=== PATIENT | male | born 1950 | race Caucasian/White ===

== ENCOUNTER 2016-05-04 11:35 | Emergency (ER) | payer MEDICARE ==
[2016-05-04] MEDS ORDERED: Zofran 4 MG/2 ML VIAL IV ONE (11:57)
[2016-05-04] MEDS ORDERED: Sodium Chloride 0.9% 1000 ML 1,000 ML IV SCH (12:00)
[2016-05-04] MEDS ORDERED: Sodium Chloride 0.9% 1000 ML 1,000 ML ONE (12:01)
[2016-05-04] MEDS ORDERED: Zofran 4 MG/2 ML VIAL ONE (12:01)
[2016-05-04 12:08] LABS: Eosinophil % 3.5 % (0.00-5.0); Granulocytes % 46.6 % (36.0-66.0); Lymphocytes % 42.1 % (24.0-44.0); Mean Cell Volume 94.6 fl (78-100); Mean Platelet Volume 9.8 fl (6-9.5); Monocytes % 6.8 % (0.0-12.0); Platelet Count 205 K/mm3 (150-450); Red Blood Count 4.61 M/mm3 (4.1-5.6); Red Cell Distribution Width 14.9 % (11.5-14.0); White Blood Count 6.1 K/mm3 (4.0-10.5)
--- NOTE | 2016-05-04 12:10 | ERPHSYRPT ---
- History of Present Illness Time Seen by Provider: 05/04/16 11:44 Historian: patient Patient Subjective Stated Complaint: PT REPORTS BEING CONTIPATED FOR 5-6 DAYS- STATES THAT THIS AM HE BEGAN PASSING A SMALL AMOUNT OF STOOL WITH BRIGHT RED BLOOD IN IT-REPORTS ABD PAIN-DENIES N/V Triage Nursing Assessment: PT PINK WARM ET DRY-BOWEL SOUNDS HYPOACTIVE-ABD TENDER TO PALP Physician History: CC: abd pain Hx: 65 y/o patient of Dr Villalobos. He has chronic pain syndrome. He has opioid induced constipation on medication. No BM for 5 days. Worsened lower abd pain. Nausea. Passing blood this AM. Low grade fever. No vomiting. Normal urination. Timing/Duration: day(s) (few) Severity of Pain-Max: moderate Severity of Pain-Current: moderate Allergies/Adverse Reactions: latex Allergy (Severe, Verified 05/04/16 11:46) Swelling pt states urinary catheter used w/ severe swelling of penis nitroglycerin [From Nitrolingual] Allergy (Severe, Verified 05/04/16 11:46) drops blood pressure immediately iodine Allergy (Verified 05/04/16 11:46) muscle relaxer Allergy (Uncoded 05/04/16 11:46) Home Medications: Fluoxetine HCl 20 mg [Prozac 20 MG] 20 mg PO DAILY 08/02/11 [History] Oxycodone HCl [Oxycontin] 60 mg PO TIDPRN 08/02/11 [History] Pantoprazole Sodium [Protonix] 40 mg PO BID 04/19/15 [History] Alprazolam 1 mg [Xanax 1 mg] 1 mg PO BID 05/04/16 [History] Lansoprazole [Prevacid 24Hr] 15 mg PO DAILY 05/04/16 [History] Hx Tetanus, Diphtheria Vaccination/Date Given: No Hx Influenza Vaccination/Date Given: No Hx Pneumococcal Vaccination/Date Given: No Immunizations Up to Date: Yes - Review of Systems Constitutional: Fever (low grade), Malaise, Weakness Eyes: No Symptoms Ears, Nose, & Throat: No Symptoms Respiratory: No Symptoms Cardiac: No Chest Pain Abdominal/Gastrointestinal: Abdominal Pain, Nausea, Constipation, Hematochezia, No Vomiting Genitourinary Symptoms: No Dysuria Musculoskeletal: Neck Pain (chronic) Skin: No Rash Neurological: Headache (chronic) All Other Systems: Reviewed and Negative - Past Medical History Pertinent Past Medical History: Yes Neurological History: Migraines ENT History: No Pertinent History Cardiac History: Arrhythmia, High Cholesterol, Myocardial Infarction ([place]) Respiratory History: Sleep Apnea Endocrine Medical History: No Pertinent History Musculoskeletal History: No Pertinent History GI Medical History: GERD, Gallbladder Disease, Ulcer History: No Pertinent History Psycho-Social History: Anxiety, Depression, Panic Disorder Male Reproductive Disorders: No Pertinent History - Past Surgical History Past Surgical History: Yes Neuro Surgical History: No Pertinent History Cardiac: Cardiac Catheterization, Cardiac Stent Respiratory: No Pertinent History Gastrointestinal: Cholecystectomy Genitourinary: No Pertinent History Musculoskeletal: Other Male Surgical History: No Pertinent History Other Surgical History: disk removed in neck., L ear tubes placed. - Social History Smoking Status: Current every day smoker How long have you smoked: 51 Exposure to second hand smoke: No Drug Use: none Patient Lives Alone: Yes - Nursing Vital Signs Nursing Vital Signs: Initial Vital Signs Temperature 97.8 F Temperature Source Oral Pulse Rate 74 Respiratory Rate 18 Blood Pressure [] 117/73 Pain Intensity 8 - Physical Exam General Appearance: alert Eye Exam: PERRL/EOMI Ears, Nose, Throat Exam: normal ENT inspection, moist mucous membranes Neck Exam: normal inspection, non-tender, supple Respiratory Exam: normal breath sounds, lungs clear Cardiovascular Exam: regular rate/rhythm Gastrointestinal/Abdomen Exam: soft, tenderness (lower), guarding (left lower ) Male Genitalia Exam: normal genitalia, No hernia Rectal Exam: normal rectal tone, blood (from 12:00 fissure), other (large stool burden, brown, moderately firm) Extremity Exam: normal inspection, normal range of motion Neurologic Exam: alert, oriented x 3, cooperative, sensation nml, No motor deficits Skin Exam: warm, dry, No rash SpO2 Interpretation: normal SpO2: 98 Oxygen Delivery: Room Air - Course Nursing assessment & vital signs reviewed: Yes - CT Exams abd/pelvis CT Interpretation: Tele-radiologist Report (negative, fecal stasis, renal cyst) Ordered Tests: Active Orders 24 hr Category Date Time Status IV Insertion STAT Care 05/04/16 11:45 Active NPO (ED) STAT Care 05/04/16 11:45 Active Pulse Oximetry (ED) STAT Care 05/04/16 11:45 Active ABDOMEN AND PELVIS W CONTRAST [CT] Stat Exams 05/04/16 11:55 Taken CBC W DIFF Stat Lab 05/04/16 12:00 Completed CMP Stat Lab 05/04/16 12:00 Completed Lactic Acid Urgent Lab 05/04/16 12:00 Completed Occult Blood,Stool Other Stat Lab 05/04/16 12:15 Completed PROTIME WITH INR Stat Lab 05/04/16 12:00 Completed PTT Stat Lab 05/04/16 12:00 Completed Medication Summary Generic Name Dose Route Start Last Admin Trade Name Freq PRN Reason Stop Dose Admin Sodium Chloride 1,000 mls @ 100 mls/hr 05/04/16 12:00 05/04/16 12:05 Sodium Chloride 0.9% 1000 Ml IV 06/03/16 11:59 100 mls/hr .Q10H SENG Administration Discontinued Medications Generic Name Dose Route Start Last Admin Trade Name Freq PRN Reason Stop Dose Admin Sodium Chloride Confirm 05/04/16 12:01 Sodium Chloride 0.9% 1000 Ml Administered 05/04/16 12:02 Dose 1,000 mls @ ud .ROUTE .STK-MED ONE Ondansetron HCl 4 mg 05/04/16 11:57 05/04/16 12:05 Zofran 4 Mg/2 Ml Vial IV 05/04/16 11:58 4 mg STAT ONE Administration Ondansetron HCl Confirm 05/04/16 12:01 Zofran 4 Mg/2 Ml Vial Administered 05/04/16 12:02 Dose 4 mg .ROUTE .STK-MED ONE Lab/Rad Data: Laboratory Result Diagrams 05/04/16 12:00 05/04/16 12:00 Laboratory Results 05/04/16 05/04/16 05/04/16 Range/Units 12:15 12:00 12:00 WBC (4.0-10.5) K/mm3 RBC (4.1-5.6) M/mm3 Hgb (12.5-18.0) gm/dl Hct (42-50) % MCV (78-100) fl MCH (26-32) pg MCHC (32-36) g/dl RDW (11.5-14.0) % Plt Count (150-450) K/mm3 MPV (6-9.5) fl Gran % (36.0-66.0) % Lymphocytes % (24.0-44.0) % Monocytes % (0.0-12.0) % Eosinophils % (0.00-5.0) % Basophils % (0.0-0.4) % Basophils # (0-0.4) INR 1.00 (0.8-3.0) PTT 30.6 (24.1-36.1) SECONDS Sodium (136-145) mEq/L Potassium (3.5-5.1) mEq/L Chloride (98-107) mEq/L Carbon Dioxide (21-32) mEq/L Anion Gap (5-15) MEQ/L BUN (9-20) mg/dL Creatinine (0.55-1.30) mg/dl Estimated GFR ML/MIN Glucose (70-110) MG/DL Lactic Acid 1.6 (0.4-2.0) Calcium (8.5-10.1) mg/dL Total Bilirubin (0.2-1.0) mg/dL AST (15-37) U/L ALT (12-78) U/L Alkaline Phosphatase (46-116) U/L Serum Total Protein (6.4-8.2) gm/dL Albumin (3.4-5.0) g/dL Stool Occult Blood NEGATIVE (Negative) 05/04/16 05/04/16 Range/Units 12:00 12:00 WBC 6.1 (4.0-10.5) K/mm3 RBC 4.61 (4.1-5.6) M/mm3 Hgb 14.3 (12.5-18.0) gm/dl Hct 43.6 (42-50) % MCV 94.6 (78-100) fl MCH 31.0 (26-32) pg MCHC 32.8 (32-36) g/dl RDW 14.9 H (11.5-14.0) % Plt Count 205 (150-450) K/mm3 MPV 9.8 H (6-9.5) fl Gran % 46.6 (36.0-66.0) % Lymphocytes % 42.1 (24.0-44.0) % Monocytes % 6.8 (0.0-12.0) % Eosinophils % 3.5 (0.00-5.0) % Basophils % 1.0 (0.0-0.4) % Basophils # 0.06 (0-0.4) INR (0.8-3.0) PTT (24.1-36.1) SECONDS Sodium 139 (136-145) mEq/L Potassium 4.1 (3.5-5.1) mEq/L Chloride 105 (98-107) mEq/L Carbon Dioxide 26.4 (21-32) mEq/L Anion Gap 11.6 (5-15) MEQ/L BUN 11 (9-20) mg/dL Creatinine 1.17 (0.55-1.30) mg/dl Estimated GFR > 60 ML/MIN Glucose 131 H (70-110) MG/DL Lactic Acid (0.4-2.0) Calcium 8.4 L (8.5-10.1) mg/dL Total Bilirubin 0.3 (0.2-1.0) mg/dL AST 25 (15-37) U/L ALT 26 (12-78) U/L Alkaline Phosphatase 161 H (46-116) U/L Serum Total Protein 7.2 (6.4-8.2) gm/dL Albumin 3.7 (3.4-5.0) g/dL Stool Occult Blood (Negative) - Progress Progress Note: 05/04/16 12:[address] to rule out diverticulitis or perforation. 05/04/16 13:[address] reassuring. He is on miralax and will take twice a day and add one dose mag citrate today. Appt made for tomorrow for recheck. Bleeding likely from fissure but may need colonoscopy and repeat H/H at some point. Counseled pt/family regarding: lab results, diagnosis, need for follow-up, rad results - Departure Time of Disposition: 13:41 Departure Disposition: Home Clinical Impression: Rectal bleeding, Anal fissure, Constipation, Chronic pain syndrome Condition: Fair Critical Care Time: No Referrals: PAOLA VILLALOBOS [Primary Care Provider] - Instructions: Abdominal Pain-Adult, Constipation Additional Instructions: See Dr Paola Villalobos tomorrow at 10:30AM. Take one bottle mag citrate today. Take miralax twice a day. Return for fever, vomiting, worsened pain, concerns.
[2016-05-04 12:22] LABS: PROTIME 11.2 SECONDS (8.83-12.87)
[2016-05-04 12:25] LABS: PTT 30.6 SECONDS (24.1-36.1)
[2016-05-04 12:31] LABS: ALBUMIN 3.7 g/dL (3.4-5.0); ALKALINE PHOSPHATASE 161 U/L (46-116); ANION GAP 11.6 MEQ/L (5-15); BILIRUBIN,TOTAL 0.3 mg/dL (0.2-1.0); BLOOD UREA NITROGEN 11 mg/dL (9-20); CHLORIDE 105 mEq/L (98-107); Carbon Dioxide 26.4 mEq/L (21-32); Glucose 131 MG/DL (70-110); Potassium 4.1 mEq/L (3.5-5.1); SGOT/AST 25 U/L (15-37); SGPT/ALT 26 U/L (12-78); SODIUM 139 mEq/L (136-145); Total Protein 7.2 gm/dL (6.4-8.2)
--- NOTE | 2016-05-04 13:40 | XRAY ---
Indication: Lower abdominal pain and constipation. Multiple contiguous axial images obtained through the abdomen and pelvis using 80 cc Isovue 370 contrast only. Comparison: Noncontrast exam November 06, 2012. Lung bases again demonstrates minimal bibasilar dependent atelectasis. Heart is not enlarged. Noncontrasted stomach and bowel loops nonobstructed. There is now moderate scattered colonic fecal debris throughout. Minimal sigmoid diverticulosis. Normal appendix. Free fluid/air. Previous exophytic right renal cyst slightly larger today measuring 3 cm in greatest axial dimension. Stable calcified splenic granulomas and cholecystectomy clips. Remaining liver, pancreas, spleen, adrenal glands, kidneys, ureters, and bladder appear unremarkable. There remains mild aortoiliac calcifications. No AAA or pathologic retroperitoneal lymphadenopathy. Osseous structures intact again with mild degenerative changes throughout the lower spine and mild levorotoscoliosis. Again multiple bilateral gluteal calcified injection granulomas. Impression: 1. Fecal stasis without obstruction. Sigmoid diverticulosis. 2. No acute intra-abdominal/pelvic abnormalities. 3. Interval enlarging benign-appearing right renal cyst. CT DI 23.57
[2016-05-04] MEDS ORDERED: CITROMA 296 ML PO ONE (13:42)
[2016-05-04] MEDS ORDERED: CITROMA 296 ML ONE (13:46)
[2016-05-04 13:55] VITALS: BP 118/65; PULSE 72; O2SAT 96
== END 2016-05-04 13:54 | disposition home or self-care (01) ==
LOC: ED 11:35
DX: K62.5 Hemorrhage of anus and rectum (principal); K60.2 Anal fissure, unspecified; K59.00 Constipation, unspecified; G89.4 Chronic pain syndrome; Z79.899 Other long term (current) drug therapy; R50.9 Fever, unspecified; R53.1 Weakness; R53.81 Other malaise; R10.9 Unspecified abdominal pain; I25.2 Old myocardial infarction
CPT/HCPCS: 36000; 36415; 74177; 80053; 82272; 83605; 85025; 85610; 85730; 96374; 99284; J2405; A9270-GY

== ENCOUNTER 2016-08-13 17:52 | Inpatient (IN) | payer MEDICARE ==
[2016-08-13] MEDS ORDERED: Zithromax 500 MG/ 250 ML NaCl Premix 500 MG/250 ML IVPB IV STA (17:58)
[2016-08-13] MEDS ORDERED: Sodium Chloride 0.9% 1000 ML 1,000 ML IV STA (17:58)
[2016-08-13] MEDS ORDERED: Zofran 4 MG/2 ML VIAL IV ONE (17:58)
[2016-08-13] MEDS ORDERED: FEVERALL 650 MG PR ONE (17:58)
[2016-08-13] MEDS ORDERED: ROCEPHIN 1 Gm-D5w 50 ml Bag** 1 G/50 ML IVPB IV STA (17:58)
[2016-08-13 18:10] LABS: Lactic Acid 2.6 (0.4-2.0)
[2016-08-13 18:11] LABS: Mean Cell Volume 93.1 fl (78-100); Mean Corpuscular Hemoglobin 30.8 pg (26-32); Mean Platelet Volume 9.7 fl (6-9.5); Platelet Count 204 K/mm3 (150-450); Red Blood Count 5.09 M/mm3 (4.1-5.6); Red Cell Distribution Width 14.6 % (11.5-14.0); White Blood Count 22.8 K/mm3 (4.0-10.5)
[2016-08-13] MEDS ORDERED: FEVERALL 650 MG ONE (18:18)
[2016-08-13] MEDS ORDERED: Sodium Chloride 0.9% 1000 ML 1,000 ML ONE (18:18)
[2016-08-13] MEDS ORDERED: Zofran 4 MG/2 ML VIAL ONE (18:18)
[2016-08-13] MEDS ORDERED: FEVERALL 325 MG ONE (18:18)
[2016-08-13] MEDS ORDERED: ROCEPHIN 1 Gm-D5w 50 ml Bag** 1 G/50 ML IVPB IV ONE (18:19)
--- NOTE | 2016-08-13 18:20 | ERPHSYRPT ---
- History of Present Illness Time Seen by Provider: 08/13/16 17:57 Source: patient, EMS Patient Subjective Stated Complaint: PT STATES HE STARTED FEELING ILL YESTERDAY , STATES HE HAS VOMITED 3 TIMES YESTERDAY AND TODAY. Triage Nursing Assessment: PT IS AOX3, ARRIVED PER EMS, RESPS ARE EASY AND NON LABORED, PRODUCTIVE COUGH IS NOTED WITH THICK WHITE SPUTUM PRESENT, SKIN IS HOT TO TOUCH, PULSES ARE STRONG AND EQUAL, ABD IS SOFT AND NONTENDER, BOWEL SOUNDS ARE PRESENT AND NORMOACTIVEX4. Physician History: CC: general weakness Hx: 65 y/o patient of Dr Brandyn Villalobos. He feels general weakness today. [place] hot and had cold chills. He vomited three times today. Some cough and white phlegm. Mylagias and he has a hx of chronic pain syndrome. He has prior cardiac stent. No chest pain. No diarrhea. No abd pain. He had nausea. EMS noted he felt hot to touch. He had a sore on the right forearm. It is better. but red and inflammed and swollen. Timing/Duration: today Severity: moderate Allergies/Adverse Reactions: latex Allergy (Severe, Verified 08/13/16 18:09) Swelling pt states urinary catheter used w/ severe swelling of penis nitroglycerin [From Nitrolingual] Allergy (Severe, Verified 08/13/16 18:09) drops blood pressure immediately iodine Allergy (Verified 08/13/16 18:09) muscle relaxer Allergy (Uncoded 08/13/16 18:09) Home Medications: Alprazolam 1 mg [Xanax 1 mg] 1 mg PO TID PRN 08/13/16 [History] Amitriptyline HCl 25 mg [Elavil 25 mg] 75 mg PO HS 08/13/16 [History] Aspirin 81 gm Chew [Baby Aspirin 81 mg Chew] 81 mg PO DAILY 08/13/16 [ History] Clonidine HCl 0.1 mg [Catapres 0.1 MG] 0.1 mg PO BID PRN 08/13/16 [History ] Fluoxetine HCl 10 mg [Prozac 10 mg] 40 mg PO QAM 08/13/16 [History] Gabapentin 300 mg PO TID 08/13/16 [History] Hydrocodone Bit/Acetaminophen [Hydrocodon-Acetaminoph 7.5-325] 1 each PO Q4- 6HPRN PRN 08/13/16 [History] Lamotrigine 25 mg PO DAILY 08/13/16 [History] Lansoprazole 30 mg PO DAILY 08/13/16 [History] Naloxegol Oxalate [Movantik] 12.5 mg PO DAILY 08/13/16 [History] Oxycodone HCl Cr 20 mg [Oxycontin 20 MG ER] 20 mg PO Q12H 08/13/16 [ History] Rosuvastatin Calcium [Crestor] 40 mg PO DAILY 08/13/16 [History] Hx Tetanus, Diphtheria Vaccination/Date Given: No Hx Influenza Vaccination/Date Given: No Hx Pneumococcal Vaccination/Date Given: No Immunizations Up to Date: Yes - Review of Systems Constitutional: Fever, Chills, Fatigue, Malaise, Weakness Eyes: No Symptoms Ears, Nose, & Throat: No Symptoms Respiratory: Cough, No Dyspnea Cardiac: No Chest Pain, No Syncope Abdominal/Gastrointestinal: Nausea, Vomiting, No Abdominal Pain, No Diarrhea Genitourinary Symptoms: No Dysuria Musculoskeletal: Myalgias Skin: No Rash Neurological: No Focal Weakness, No Headache, No Parasthesia All Other Systems: Reviewed and Negative - Past Medical History Pertinent Past Medical History: Yes Neurological History: Migraines ENT History: No Pertinent History Cardiac History: Arrhythmia, High Cholesterol, Myocardial Infarction ([place]) Respiratory History: Sleep Apnea Endocrine Medical History: No Pertinent History Musculoskeletal History: No Pertinent History GI Medical History: GERD, Gallbladder Disease, Ulcer History: No Pertinent History Psycho-Social History: Anxiety, Depression, Panic Disorder Male Reproductive Disorders: No Pertinent History - Past Surgical History Past Surgical History: Yes Neuro Surgical History: No Pertinent History Cardiac: Cardiac Catheterization, Cardiac Stent Respiratory: No Pertinent History Gastrointestinal: Cholecystectomy Genitourinary: No Pertinent History Musculoskeletal: Other Male Surgical History: No Pertinent History Other Surgical History: disk removed in neck., L ear tubes placed. - Social History Smoking Status: Current every day smoker How long have you smoked: 1.5 Exposure to second hand smoke: No Drug Use: none Patient Lives Alone: No - Nursing Vital Signs Nursing Vital Signs: Initial Vital Signs Temperature 104.1 F Temperature Source Rectal Pulse Rate 140 Respiratory Rate 22 Blood Pressure [] 104/67 - Physical Exam General Appearance: alert Eye Exam: PERRL/EOMI Ears, Nose, Throat Exam: dry mucous membranes Neck Exam: normal inspection, non-tender, supple, No meningismus Respiratory Exam: rhonchi (RLL), other (+ cough) Cardiovascular Exam: regular rate/rhythm, tachycardia Gastrointestinal/Abdomen Exam: soft, other (no tenderness to deep palpation), No tenderness, No distention, No mass, No guarding Male Genitalia Exam: normal genitalia Back Exam: normal inspection, No vertebral tenderness Extremity Exam: normal inspection, normal range of motion, other (redness with some edema right forearm) Neurologic Exam: alert, oriented x 3, cooperative, sensation nml, No motor deficits Skin Exam: warm, dry, No rash SpO2 Interpretation: normal SpO2: 97 Oxygen Delivery: Room Air - Course Nursing assessment & vital signs reviewed: Yes EKG Interpreted by Me: RATE (135), Sinus Tach, NORMAL INTERVALS (QTc 454), NORMAL QRS, Non-specific ST Changes, Other (few PVC's) - Radiology Exams cxr X-ray Interpretation: Reviewed by me (mild RLL patchy infiltrates) Ordered Tests: Active Orders 24 hr Category Date Time Status [employer] Systems Safety Engineer STAT Care 08/13/16 17:58 Active Clean Catch Urine Specimen STAT Care 08/13/16 17:57 Active EKG-ER Only STAT Care 08/13/16 17:57 Active IV Insertion STAT Care 08/13/16 17:58 Active IV Insertion-2nd Peripheral STAT Care 08/13/16 17:58 Active Pulse Oximetry (ED) STAT Care 08/13/16 17:58 Active Rectal Temperature STAT Care 08/13/16 17:58 Active Saline Lock STAT Care 08/13/16 17:58 Active CHEST 1 VIEW (PORTABLE) Stat Exams 08/13/16 17:58 Taken BLOOD CULTURE Stat Lab 08/13/16 18:05 Received CBC W DIFF Stat Lab 08/13/16 18:05 Completed CMP Stat Lab 08/13/16 18:05 Completed CULTURE,URINE Stat Lab 08/13/16 18:45 Received Lactic Acid Stat Lab 08/13/16 17:58 Results Manual Differential NC Stat Lab 08/13/16 18:05 Completed PROTIME WITH INR Stat Lab 08/13/16 18:05 Completed PTT Stat Lab 08/13/16 18:05 Completed UA Stat Lab 08/13/16 18:45 Received Medication Summary Discontinued Medications Generic Name Dose Route Start Last Admin Trade Name Sherrie PRN Reason Stop Dose Admin Acetaminophen 975 mg 08/13/16 17:58 08/13/16 18:22 [place] 650 Mg [place] 08/13/16 17:59 975 mg STAT ONE Administration Acetaminophen Confirm 08/13/16 18:18 [place] 650 Mg Administered 08/13/16 18:19 Dose 650 mg .ROUTE .STK-MED ONE Acetaminophen Confirm 08/13/16 18:18 [place] 325 Mg Administered 08/13/16 18:19 Dose 325 mg .ROUTE .STK-MED ONE Diphtheria/Tetanus/Acell Pertussis 0.5 ml 08/13/16 19:03 Adacel Vial IM 08/13/16 19:04 .ONCE ONE Ceftriaxone Sodium/Dextrose 1 g in 50 mls @ 100 mls/hr 08/13/16 17:58 18:23 Rocephin 1 Gm-D5w 50 Ml Bag IV 08/13/16 18:27 100 mls/hr STAT STA Administration Sodium Chloride 1,000 mls @ 999 mls/hr 08/13/16 17:58 08/13/16 18:23 Sodium Chloride 0.9% 1000 Ml IV 08/13/16 18:58 999 mls/hr .Q1H1M STA Administration Azithromycin 500 mg in 250 mls @ 250 mls/hr 08/13/16 17:58 08/13/16 18:52 Zithromax 500 Mg/ 250 Ml Nacl Premix IV 08/13/16 18:57 250 mls/hr STAT STA Administration Sodium Chloride Confirm 08/13/16 18:18 Sodium Chloride 0.9% 1000 Ml Administered 08/13/16 18:19 Dose 1,000 mls @ ud .ROUTE .STK-MED ONE Ceftriaxone Sodium/Dextrose Confirm 08/13/16 18:19 Rocephin 1 Gm-D5w 50 Ml Bag Administered 08/13/16 18:20 Dose 1 g in 50 mls @ ud IV .STK-MED ONE Azithromycin Confirm 08/13/16 18:49 Zithromax 500 Mg/ 250 Ml Nacl Premix Administered 08/13/16 18:50 Dose 500 mg in 250 mls @ ud IV .STK-MED ONE Lorazepam 1 mg 08/13/16 18:42 08/13/16 18:52 Ativan 2 Mg/1 Ml Vial IV 08/13/16 18:43 1 mg STAT ONE Administration Lorazepam Confirm 08/13/16 18:48 Ativan 2 Mg/1 Ml Vial Administered 08/13/16 18:49 Dose 2 mg .ROUTE .STK-MED ONE Ondansetron HCl 4 mg 08/13/16 17:58 08/13/16 18:23 Zofran 4 Mg/2 Ml Vial IV 08/13/16 17:59 4 mg STAT ONE Administration Ondansetron HCl Confirm 08/13/16 18:18 Zofran 4 Mg/2 Ml Vial Administered 08/13/16 18:19 Dose 4 mg .ROUTE .STK-MED ONE Lab/Rad Data: Laboratory Result Diagrams 08/13/16 18:05 08/13/16 18:05 Laboratory Results 08/13/16 08/13/16 08/13/16 Range/Units 18:05 18:05 18:05 WBC 22.8 H (4.0-10.5) K/mm3 RBC 5.09 (4.1-5.6) M/mm3 Hgb 15.7 (12.5-18.0) gm/dl Hct 47.4 (42-50) % MCV 93.1 (78-100) fl MCH 30.8 (26-32) pg MCHC 33.1 (32-36) g/dl RDW 14.6 H (11.5-14.0) % Plt Count 204 (150-450) K/mm3 MPV 9.7 H (6-9.5) fl Segmented Neutrophils 83 H (36.-66.) % Band Neutrophils 6 H (0.0-2.0) % Lymphocytes (Manual) 7 L (24-44) % Monocytes (Manual) 4 (0.0-12.0) % Differential Comment NORMAL Platelet Estimate NORMAL (NORMAL) INR 1.16 (0.8-3.0) APTT 30.1 (24.1-36.1) SECONDS Sodium 137 (136-145) mEq/L Potassium 3.9 (3.5-5.1) mEq/L Chloride 100 (98-107) mEq/L Carbon Dioxide 24.4 (21-32) mEq/L Anion Gap 16.6 H (5-15) MEQ/L BUN 11 (9-20) mg/dL Creatinine 1.25 (0.55-1.30) mg/dl Estimated GFR > 60 ML/MIN Glucose 162 H (70-110) MG/DL Lactic Acid (0.4-2.0) Calcium 9.5 (8.5-10.1) mg/dL Total Bilirubin 1.10 H (0.2-1.0) mg/dL AST 21 (15-37) U/L ALT 28 (12-78) U/L Alkaline Phosphatase 135 H (46-116) U/L Serum Total Protein 7.9 (6.4-8.2) gm/dL Albumin 3.8 (3.4-5.0) g/dL 08/13/16 Range/Units 17:58 WBC (4.0-10.5) K/mm3 RBC (4.1-5.6) M/mm3 Hgb (12.5-18.0) gm/dl Hct (42-50) % MCV (78-100) fl MCH (26-32) pg MCHC (32-36) g/dl RDW (11.5-14.0) % Plt Count (150-450) K/mm3 MPV (6-9.5) fl Segmented Neutrophils (36.-66.) % Band Neutrophils (0.0-2.0) % Lymphocytes (Manual) (24-44) % Monocytes (Manual) (0.0-12.0) % Differential Comment Platelet Estimate (NORMAL) INR (0.8-3.0) APTT (24.1-36.1) SECONDS Sodium (136-145) mEq/L Potassium (3.5-5.1) mEq/L Chloride (98-107) mEq/L Carbon Dioxide (21-32) mEq/L Anion Gap (5-15) MEQ/L BUN (9-20) mg/dL Creatinine (0.55-1.30) mg/dl Estimated GFR ML/MIN Glucose (70-110) MG/DL Lactic Acid 2.6 H (0.4-2.0) Calcium (8.5-10.1) mg/dL Total Bilirubin (0.2-1.0) mg/dL AST (15-37) U/L ALT (12-78) U/L Alkaline Phosphatase (46-116) U/L Serum Total Protein (6.4-8.2) gm/dL Albumin (3.4-5.0) g/dL - Progress Progress Note: 08/13/16 18:21 Pt appears to have sepsis. 104 rectal temp. Cultures sent. Will cover with rocephin and zithromax as he has respiratory symptoms. IVF bolus initiated. Rectal APAP. 08/13/16 18:43 Denied out of any meds but xanax bottle empty and now states out of it for 2-3 weeks. 08/13/16 19:07 Flu pending. UA pending. Will cover with abtx to include vanco. Called Dr Fried for IP admission. Discussed with .: Corky Will see patient in: hospital (full admit) Counseled pt/family regarding: lab results, diagnosis, need for follow-up, rad results - Departure Time of Disposition: 19:07 Departure Disposition: In-patient Admission Clinical Impression: Sepsis, RLL pneumonia, Cellulitis of right forearm Condition: Fair Critical Care Time: Yes Critical Care Time(excluding separately billable procedures): 30-74 minutes Referrals: PAOLA VILLALOBOS [Primary Care Provider] -
[2016-08-13 18:33] LABS: INR 1.16 (0.8-3.0); PROTIME 13.1 SECONDS (8.83-12.87)
[2016-08-13 18:36] LABS: PTT 30.1 SECONDS (24.1-36.1)
[2016-08-13] MEDS ORDERED: Ativan 2 MG/1 ML VIAL IV ONE ×2 (18:42→19:11)
[2016-08-13 18:44] LABS: ALBUMIN 3.8 g/dL (3.4-5.0); ALKALINE PHOSPHATASE 135 U/L (46-116); ANION GAP 16.6 MEQ/L (5-15); BLOOD UREA NITROGEN 11 mg/dL (9-20); CHLORIDE 100 mEq/L (98-107); Carbon Dioxide 24.4 mEq/L (21-32); Glucose 162 MG/DL (70-110); Potassium 3.9 mEq/L (3.5-5.1); SGOT/AST 21 U/L (15-37); SGPT/ALT 28 U/L (12-78); SODIUM 137 mEq/L (136-145); Total Protein 7.9 gm/dL (6.4-8.2)
[2016-08-13] MEDS ORDERED: Ativan 2 MG/1 ML VIAL ONE ×2 (18:48→19:13)
[2016-08-13] MEDS ORDERED: Zithromax 500 MG/ 250 ML NaCl Premix 500 MG/250 ML IVPB IV ONE (18:49)
[2016-08-13 18:52] LABS: BAND 6 % (0.0-2.0); Platelet Estimate NORMAL (NORMAL); Total Cells Counted 100
[2016-08-13] MEDS ORDERED: Adacel Vial IM ONE ×2 (19:03→19:07)
[2016-08-13] MEDS ORDERED: PHARMACY DOSING REQUIRED: VANCOMYCIN IV ONE ×2 (19:06→19:46)
[2016-08-13 19:19] LABS: Collection Type CLEAN CATCH
[2016-08-13 19:20] LABS: Bilirubin NEGATIVE (NEGATIVE); Blood NEGATIVE Ery/ul (0-5); COMPLETE URINE MICROSCOPIC? NO; Glucose NEGATIVE (NEGATIVE); Leukocyte Esterase NEGATIVE (NEGATIVE)
[2016-08-13] MEDS ORDERED: TYLENOL 325 MG PO PRN (19:46)
[2016-08-13] MEDS ORDERED: Vancomycin 1GM/ Ns 250ML*** 2 GM/500 ML IVPB IV ONE (21:00)
[2016-08-13] MEDS ORDERED: NORCO 7.5/325 MG TAB PO PRN (21:20)
[2016-08-13] MEDS: Sodium Chloride 0.9% 1000 ML 1,000 ML IV SCH (22:17)
[2016-08-13] MEDS: NEURONTIN 300 MG PO SCH (22:18)
[2016-08-13] MEDS: ELAVIL 25 MG PO SCH (22:18)
[2016-08-13] MEDS: Oxycontin 20 MG ER PO SCH (22:18)
[2016-08-14 06:07] LABS: Mean Cell Volume 94.6 fl (78-100); Platelet Count 158 K/mm3 (150-450); Red Blood Count 4.08 M/mm3 (4.1-5.6); Red Cell Distribution Width 14.4 % (11.5-14.0); White Blood Count 21.8 K/mm3 (4.0-10.5)
[2016-08-14 06:18] LABS: Mean Corpuscular Hemoglobin 31.8 pg (26-32)
[2016-08-14 06:20] LABS: ALBUMIN 2.8 g/dL (3.4-5.0); ALKALINE PHOSPHATASE 99 U/L (46-116); ANION GAP 13.9 MEQ/L (5-15); BLOOD UREA NITROGEN 15 mg/dL (9-20); CHLORIDE 106 mEq/L (98-107); Carbon Dioxide 23.7 mEq/L (21-32); Glucose 119 MG/DL (70-110); Potassium 3.9 mEq/L (3.5-5.1); SGOT/AST 17 U/L (15-37); SGPT/ALT 20 U/L (12-78); SODIUM 140 mEq/L (136-145); Total Protein 6.1 gm/dL (6.4-8.2)
[2016-08-14 07:27] LABS: ANISOCYTOSIS 1+; Platelet Estimate NORMAL (NORMAL); Total Cells Counted 100; Toxic Granulation 2+
--- NOTE | 2016-08-14 08:08 | XRAY ---
Indication: Possible sepsis. Comparison: November 26, 2014. Portable chest again demonstrates normal heart and lungs. Bony thorax intact.
[2016-08-14] MEDS: Oxycontin 20 MG ER PO SCH ×2 (09:21→21:33)
[2016-08-14] MEDS: ROCEPHIN 1 Gm-D5w 50 ml Bag** 1 G/50 ML IVPB IV SCH (09:21)
[2016-08-14] MEDS: NEURONTIN 300 MG PO SCH ×3 (09:21→21:33)
[2016-08-14] MEDS: VANCOCIN 1 GM VIAL*** 1.25 GM in Sodium Chloride 0.9% 250 ML 250 ML IV SCH ×2 (10:14→21:32)
[2016-08-14] MEDS: Sodium Chloride 0.9% 1000 ML 1,000 ML IV SCH ×2 (12:26→21:36)
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
[2016-08-14] MEDS ORDERED: Catapres 0.1 MG PO PRN (13:10)
[2016-08-14] MEDS ORDERED: MEDICATION INTERVENTION MC PRN (13:29)
[2016-08-14] MEDS: ECOTRIN 81 MG PO SCH (14:58)
[2016-08-14] MEDS: Protonix 40MG Tablet PO SCH (14:58)
[2016-08-14] MEDS: Prozac 20 MG PO SCH (14:58)
[2016-08-14] MEDS: lamICTAL 100MG TABLET PO SCH (15:04)
[2016-08-14] MEDS: Zithromax 500 MG/ 250 ML NaCl Premix 500 MG/250 ML IVPB IV SCH (17:13)
[2016-08-14] MEDS: ELAVIL 25 MG PO SCH (21:33)
[2016-08-14] MEDS: ZOCOR 20MG PO SCH (21:33)
[2016-08-14] MEDS: Klonopin 0.5 MG PO PRN (21:33)
[2016-08-15] MEDS: Sodium Chloride 0.9% 1000 ML 1,000 ML IV SCH ×2 (01:56→15:42)
[2016-08-15 05:16] LABS: BASOPHIL % 0.3 % (0.0-0.4); Eosinophil % 1.6 % (0.00-5.0); Lymphocytes % 13.9 % (24.0-44.0); Mean Cell Volume 94.8 fl (78-100); Mean Platelet Volume 9.7 fl (6-9.5); Monocytes % 5.2 % (0.0-12.0); Platelet Count 136 K/mm3 (150-450); Red Blood Count 3.81 M/mm3 (4.1-5.6); Red Cell Distribution Width 14.5 % (11.5-14.0); White Blood Count 14.5 K/mm3 (4.0-10.5)
[2016-08-15 05:31] LABS: ANION GAP 13.2 MEQ/L (5-15); BLOOD UREA NITROGEN 10 mg/dL (9-20); CHLORIDE 106 mEq/L (98-107); Carbon Dioxide 24.8 mEq/L (21-32); Glucose 108 MG/DL (70-110); Potassium 3.7 mEq/L (3.5-5.1); SODIUM 140 mEq/L (136-145)
[2016-08-15 06:10] LABS: Mean Corpuscular Hemoglobin 30.9 pg (26-32)
[2016-08-15] MEDS ORDERED: TROUGH DRUG LEVELS IJ ONE (09:00)
[2016-08-15] MEDS: NEURONTIN 300 MG PO SCH ×3 (09:37→21:37)
[2016-08-15] MEDS: lamICTAL 100MG TABLET PO SCH (09:37)
[2016-08-15] MEDS: Prozac 20 MG PO SCH (09:37)
[2016-08-15] MEDS: Protonix 40MG Tablet PO SCH (09:42)
[2016-08-15] MEDS: PATIENT OWN MEDICATION PO SCH (09:42)
[2016-08-15] MEDS: ECOTRIN 81 MG PO SCH (09:42)
[2016-08-15] MEDS: Oxycontin 20 MG ER PO SCH ×2 (09:42→21:36)
[2016-08-15] MEDS: ROCEPHIN 1 Gm-D5w 50 ml Bag** 1 G/50 ML IVPB IV SCH (09:45)
[2016-08-15] MEDS ORDERED: LAMOTRIGINE 25 MG PO SCH (10:00)
[2016-08-15] MEDS ORDERED: NON-FORMULARY ITEM (Rosuvastatin Calcium [Crestor] 40 MG) PO SCH (10:00)
[2016-08-15] MEDS ORDERED: PROZAC 10 MG PO SCH (10:00)
[2016-08-15] MEDS ORDERED: NALOXEGOL OXALATE 12.5 MG PO SCH (10:00)
[2016-08-15] MEDS ORDERED: NON-FORMULARY ITEM (Lansoprazole [Lansoprazole] 30 MG) PO SCH (10:00)
[2016-08-15] MEDS ORDERED: BABY ASPIRIN 81 MG CHEW PO SCH (10:00)
[2016-08-15] MEDS: VANCOCIN 1 GM VIAL*** 1.25 GM in Sodium Chloride 0.9% 250 ML 250 ML IV SCH ×2 (11:39→22:53)
--- NOTE | 2016-08-15 12:59 | PCM.NOTE ---
Date and Time: 08/15/16 1254 Subjective Assessment: Pt still having pain in the arm, 2-3. Godfrey po. chronic constipation; usually takes miralax as well as movantik at home. - Review of Systems Constitutional: No Fever Musculoskeletal: Other (arm pain, cellulitis) Objective Exam General Appearance: no apparent distress Neurologic Exam: alert, oriented x 3, cooperative Skin Exam: other (see below) Respiratory Exam: normal breath sounds, lungs clear, No crackles/rales, No rhonchi, No wheezing Cardiovascular Exam: tachycardia, irregular Extremity Exam: other (R arm distally with decreased erythema and swelling of the hand. No increase in erythema proximally up the forearm. distal forearm erytehmatous and ttp, edematous.) OBJECTIVE DATA Vital Signs: Vital Signs - 24 hr Temp Pulse Resp BP Pulse Ox 08/15/16 07:24 98.4 F 87 18 107/60 97 08/15/16 07:03 96 08/15/16 04:00 98.2 F 109 H 19 119/55 95 08/15/16 00:00 98.5 F 96 H 20 107/57 94 L 08/14/16 20:00 98.7 F 96 H 20 108/60 95 08/14/16 18:28 97 08/14/16 16:00 98.6 F 85 18 116/58 99 Oxygen-Last 24 hours O2 Percentage 2 Liters = 28% O2 Percentage 2 Liters = 28% O2 Percentage 2 Liters = 28% O2 Percentage 2 Liters = 28% O2 Percentage 2 Liters = 28% Pain Assessment - Last Documented Pain Intensity 5 Pain Scale Used 0-10 Pain Scale Intake and Output: Intake & Output 08/13/16 08/14/16 08/15/16 08/16/16 11:59 11:59 11:59 11:59 Intake Total 1403 5790 Output Total 0 2900 Balance 1403 2890 Weight 93.168 kg Lab Results: Lab Results-Last 24 Hours 08/14/16 08/15/16 08/15/16 Range/Units 12:53 05:15 05:15 WBC 14.5 H (4.0-10.5) K/mm3 RBC 3.81 L (4.1-5.6) M/mm3 Hgb 11.8 L (12.5-18.0) gm/dl Hct 36.1 L (42-50) % MCV 94.8 (78-100) fl MCH 30.9 (26-32) pg MCHC 32.7 (32-36) g/dl RDW 14.5 H (11.5-14.0) % Plt Count 136 L (150-450) K/mm3 MPV 9.7 H (6-9.5) fl Gran % 79.0 H (36.0-66.0) % Lymphocytes % 13.9 L (24.0-44.0) % Monocytes % 5.2 (0.0-12.0) % Eosinophils % 1.6 (0.00-5.0) % Basophils % 0.3 (0.0-0.4) % Basophils # 0.04 (0-0.4) Sodium 140 (136-145) mEq/L Potassium 3.7 (3.5-5.1) mEq/L Chloride 106 (98-107) mEq/L Carbon Dioxide 24.8 (21-32) mEq/L Anion Gap 13.2 (5-15) MEQ/L BUN 10 (9-20) mg/dL Creatinine 0.87 (0.55-1.30) mg/dl Estimated GFR > 60 ML/MIN Glucose 108 (70-110) MG/DL Calcium 8.2 L (8.5-10.1) mg/dL Troponin I < 0.017 (0.000-0.056) ng/ml Vancomycin Trough (10-20) UG/ML 08/15/16 Range/Units 09:00 WBC (4.0-10.5) K/mm3 RBC (4.1-5.6) M/mm3 Hgb (12.5-18.0) gm/dl Hct (42-50) % MCV (78-100) fl MCH (26-32) pg MCHC (32-36) g/dl RDW (11.5-14.0) % Plt Count (150-450) K/mm3 MPV (6-9.5) fl Gran % (36.0-66.0) % Lymphocytes % (24.0-44.0) % Monocytes % (0.0-12.0) % Eosinophils % (0.00-5.0) % Basophils % (0.0-0.4) % Basophils # (0-0.4) Sodium (136-145) mEq/L Potassium (3.5-5.1) mEq/L Chloride (98-107) mEq/L Carbon Dioxide (21-32) mEq/L Anion Gap (5-15) MEQ/L BUN (9-20) mg/dL Creatinine (0.55-1.30) mg/dl Estimated GFR ML/MIN Glucose (70-110) MG/DL Calcium (8.5-10.1) mg/dL Troponin I (0.000-0.056) ng/ml Vancomycin Trough 12.4 (10-20) UG/ML Multi-Disciplinary Progress Notes: Multi-Disciplinary Progress Notes 08/14/16 17:00 Case Management Note by Debbie Pickard S/W ANGEL AT [phone]. SHE STATES THAT HER DAD, NORMALLY LIVES AT HOME BY HIMSELF AND IS INDEPENDENT OF ALL ADL'S, NO DME'S. SHE STATES THAT HE PLANS TO GO HOME TO PRE EPISODIC LEVEL FUNCTION. ALL QUESTIONS ANSWERED, AND DENIES NEED FOR ANY OTHER DISCHARGE NEEDS. WILL CONTINUE TO MONITOR. Initialized on 08/14/16 17:00 - END OF NOTE 08/14/16 16:43 Case Management Note by Debbie Pickard DISCHARGE PLAN REVIEWED. PT NORMALLY LIVES AT HOME ALONE AND NAMES HIS DAUTHER ANGEL, THE LAY CAREGIVER. [phone]. ATTEMPT X 1 TO CALL NUMBER LISTED , WRONG NUMBER, WILL CHECK AGAIN ET THEN CALL. PLAN TO GO HOME TO PRE EPISODIC LEVEL OF FUNCTION. WILL CONTINUE TO MONITOR FOR ALL D/C NEEDS. Initialized on 08/14/16 16:43 - END OF NOTE Assessment/Plan (1) Arrhythmia Current Visit: Yes Status: Acute Qualifiers: Arrhythmia type: unspecified cardiac arrhythmia Qualified Code(s): I49.9 - Cardiac arrhythmia, unspecified Assessment & Plan: Pt states he's had arrhythmia in the past but denies afib. EKG ordered. Code(s): I49.9 - CARDIAC ARRHYTHMIA, UNSPECIFIED (2) Cellulitis of right forearm Current Visit: Yes Status: Acute Assessment & Plan: No worsening, and WBC count has improved. Will keep him on vancomycin. Code(s): L03.113 - CELLULITIS OF RIGHT UPPER LIMB (3) RLL pneumonia Current Visit: Yes Status: Acute Qualifiers: Pneumonia type: due to unspecified organism Qualified Code(s): J18.1 - Lobar pneumonia, unspecified organism Assessment & Plan: On IV rocephin and zithromax. Code(s): J18.1 - LOBAR PNEUMONIA, UNSPECIFIED ORGANISM (4) Sepsis Current Visit: Yes Status: Resolved Qualifiers: Sepsis type: sepsis due to unspecified organism Qualified Code(s): A41.9 - Sepsis, unspecified organism (5) Anxiety Current Visit: No Status: Chronic Code(s): F41.9 - ANXIETY DISORDER, UNSPECIFIED (6) Depression Current Visit: Yes Status: Chronic Qualifiers: Depression Type: major depressive disorder Major depression recurrence: recurrent Active/Remission status: in remission of unspecified degree Qualified Code(s): F33.40 - Major depressive disorder, recurrent, in remission, unspecified Code(s): F32.9 - MAJOR DEPRESSIVE DISORDER, SINGLE EPISODE, UNSPECIFIED (7) Chronic pain Current Visit: Yes Status: Chronic Qualifiers: Chronic pain type: chronic pain syndrome Qualified Code(s): G89.4 - Chronic pain syndrome Code(s): G89.29 - OTHER CHRONIC PAIN
[2016-08-15] MEDS: Miralax Powder 17GM PACKET PO SCH (15:35)
[2016-08-15] MEDS: Zithromax 500 MG/ 250 ML NaCl Premix 500 MG/250 ML IVPB IV SCH (18:48)
[2016-08-15] MEDS: ELAVIL 25 MG PO SCH (21:36)
[2016-08-15] MEDS: ZOCOR 20MG PO SCH (21:36)
[2016-08-15] MEDS: Klonopin 0.5 MG PO PRN (22:52)
--- NOTE | 2016-08-16 08:30 | PCM.NOTE ---
Date and Time: 08/16/16828 Subjective Assessment: nauseated this am thinks the arm is doing better no fever or chills overnight no vomiting had normal bm yesterday. intermittent short of breath no coughing now Objective Exam General Appearance: no apparent distress, alert, obese Neurologic Exam: alert, oriented x 3, cooperative, depressed mood/affect Skin Exam: normal color, warm, dry, other (right arm with red warm weeping in the distal forarm with yellow soaked bandage.) Eye Exam: EOMI Ears, Nose, Throat Exam: moist mucous membranes Neck Exam: normal inspection, supple Respiratory Exam: normal breath sounds, lungs clear, No respiratory distress Cardiovascular Exam: regular rate/rhythm, normal heart sounds Gastrointestinal/Abdomen Exam: soft, tenderness (periumbilical ild), No mass, No guarding, No rebound Extremity Exam: normal inspection, other (right forarm see above 1+ karmen LE edema no calf tendenrss), No calf tenderness, No shabana's sign OBJECTIVE DATA Vital Signs: Vital Signs - 24 hr Temp Pulse Resp BP Pulse Ox 08/16/16 07:40 98.3 F 91 H 20 120/66 94 L 08/16/16 06:41 94 L 08/16/16 03:49 97.7 F 93 H 20 119/62 93 L 08/15/16 23:59 98.4 F 98 H 19 122/64 96 08/15/16 20:00 98.3 F 91 H 20 143/87 95 08/15/16 18:58 96 08/15/16 16:00 98.5 F 106 H 18 138/74 94 L 08/15/16 12:00 98.2 F 85 18 126/58 96 Pain Assessment - Last Documented Pain Intensity 0 Pain Scale Used FLACC Intake and Output: Intake & Output 08/13/16 08/14/16 08/15/16 08/16/16 11:59 11:59 11:59 11:59 Intake Total 1403 5790 3481 Output Total 0 2900 400 Balance 1403 2890 3081 Weight 93.168 kg Lab Results: Lab Results-Last 24 Hours 08/15/16 Range/Units 09:00 Vancomycin Trough 12.4 (10-20) UG/ML Assessment/Plan (1) Cellulitis of right forearm Current Visit: Yes Status: Acute Assessment & Plan: right forarm appears improving based on the ink markings has yellow drainage still warm and red fever resolved suspected source of the sepsis that has resolved wound culture is pending. continue vanc and ceftriaxone Code(s): L03.113 - CELLULITIS OF RIGHT UPPER LIMB (2) RLL pneumonia Current Visit: Yes Status: Acute Qualifiers: Pneumonia type: due to unspecified organism Qualified Code(s): J18.1 - Lobar pneumonia, unspecified organism Assessment & Plan: suspected with admitting diagnosis; however the cxr looks clear on my review radiology read as clear as well. with the clinical concern on admission will continue the azithromycin and rocephin. Code(s): J18.1 - LOBAR PNEUMONIA, UNSPECIFIED ORGANISM (3) Sepsis Current Visit: Yes Status: Resolved Qualifiers: Sepsis type: sepsis due to unspecified organism Qualified Code(s): A41.9 - Sepsis, unspecified organism (4) Anxiety Current Visit: Yes Status: Chronic Assessment & Plan: he was weaned off benzo as outpatient there was some concern of his empty pill bottle but last Rx was in April 2016 no longer taking the benzo as outpatient. currently on as needed inpatient clonazepam Code(s): F41.9 - ANXIETY DISORDER, UNSPECIFIED (5) Constipation Current Visit: Yes Status: Chronic Code(s): K59.00 - CONSTIPATION, UNSPECIFIED (6) Chronic pain syndrome Current Visit: Yes Status: Chronic Assessment & Plan: follows with Dr. Jimenez in [facility] Code(s): G89.4 - CHRONIC PAIN SYNDROME (7) Depression Current Visit: Yes Status: Chronic Qualifiers: Depression Type: major depressive disorder Major depression recurrence: recurrent Code(s): F32.9 - MAJOR DEPRESSIVE DISORDER, SINGLE EPISODE, UNSPECIFIED
[2016-08-16] MEDS: Oxycontin 20 MG ER PO SCH ×2 (09:15→21:46)
[2016-08-16] MEDS: Prozac 20 MG PO SCH (09:15)
[2016-08-16] MEDS: ECOTRIN 81 MG PO SCH (09:15)
[2016-08-16] MEDS: lamICTAL 100MG TABLET PO SCH (09:15)
[2016-08-16] MEDS: Protonix 40MG Tablet PO SCH (09:15)
[2016-08-16] MEDS: NEURONTIN 300 MG PO SCH ×3 (09:15→21:45)
[2016-08-16] MEDS: Miralax Powder 17GM PACKET PO SCH (09:15)
[2016-08-16] MEDS: PATIENT OWN MEDICATION PO SCH ×2 (09:16→09:22)
[2016-08-16] MEDS: ROCEPHIN 1 Gm-D5w 50 ml Bag** 1 G/50 ML IVPB IV SCH (09:17)
[2016-08-16] MEDS ORDERED: Protonix 40MG Tablet PO SCH (10:00)
[2016-08-16] MEDS: VANCOCIN 1 GM VIAL*** 1.25 GM in Sodium Chloride 0.9% 250 ML 250 ML IV SCH ×2 (10:30→21:45)
[2016-08-16] MEDS: CLARITIN 10 MG PO SCH (13:20)
[2016-08-16] MEDS: Zithromax 500 MG/ 250 ML NaCl Premix 500 MG/250 ML IVPB IV SCH (17:28)
[2016-08-16] MEDS: ZOCOR 20MG PO SCH (21:45)
[2016-08-16] MEDS: Klonopin 0.5 MG PO PRN (21:46)
[2016-08-16] MEDS: ELAVIL 25 MG PO SCH (21:46)
[2016-08-17 05:16] LABS: Mean Cell Volume 94.9 fl (78-100); Mean Platelet Volume 9.8 fl (6-9.5); Platelet Count 184 K/mm3 (150-450); Red Cell Distribution Width 14.1 % (11.5-14.0); White Blood Count 7.1 K/mm3 (4.0-10.5)
[2016-08-17 05:21] LABS: Mean Corpuscular Hemoglobin 30.7 pg (26-32)
[2016-08-17 05:36] LABS: ANION GAP 13.8 MEQ/L (5-15); BLOOD UREA NITROGEN 7 mg/dL (9-20); CHLORIDE 109 mEq/L (98-107); Carbon Dioxide 24.2 mEq/L (21-32); Glucose 101 MG/DL (70-110); Potassium 3.7 mEq/L (3.5-5.1); SODIUM 143 mEq/L (136-145)
[2016-08-17 07:14] LABS: Eosinophil 1 % (0.00-3.0); Total Cells Counted 100
[2016-08-17 07:15] LABS: ANISOCYTOSIS 1+; Platelet Estimate NORMAL (NORMAL); Poikilocytosis 1+
[2016-08-17] MEDS: Oxycontin 20 MG ER PO SCH ×2 (08:50→21:43)
[2016-08-17] MEDS: Protonix 40MG Tablet PO SCH (08:50)
[2016-08-17] MEDS: Prozac 20 MG PO SCH (08:50)
[2016-08-17] MEDS: ECOTRIN 81 MG PO SCH (08:50)
[2016-08-17] MEDS: Flonase NASAL NS SCH (08:50)
[2016-08-17] MEDS: NEURONTIN 300 MG PO SCH ×3 (08:51→21:44)
[2016-08-17] MEDS: CLARITIN 10 MG PO SCH (08:51)
[2016-08-17] MEDS: Miralax Powder 17GM PACKET PO SCH (08:51)
[2016-08-17] MEDS: ROCEPHIN 1 Gm-D5w 50 ml Bag** 1 G/50 ML IVPB IV SCH (08:51)
[2016-08-17] MEDS: lamICTAL 100MG TABLET PO SCH (08:51)
[2016-08-17] MEDS: Phenergan 25 MG INJ IV PRN ×2 (08:52→17:39)
[2016-08-17] MEDS: PATIENT OWN MEDICATION PO SCH (08:52)
--- NOTE | 2016-08-17 09:26 | PCM.NOTE ---
Date and Time: 08/17/16920 Subjective Assessment: He had nausea this AM and just received promethazine ordered. He reports his right arm is still sore. He had a stool yesterday but not yet today. He reports he first came to the hospital with generalized weakness and nausea. - Review of Systems Constitutional: No Symptoms Eyes: No Symptoms Ears, Nose, & Throat: No Symptoms Respiratory: No Symptoms Cardiac: No Symptoms Abdominal/Gastrointestinal: Nausea, Constipation, No Vomiting, No Diarrhea Genitourinary Symptoms: No Symptoms Musculoskeletal: No Symptoms Skin: Cellulitis, Other (crusting of right arm, tenderness of this area.) Objective Exam General Appearance: no apparent distress, alert Neurologic Exam: alert, cooperative, normal mood/affect Skin Exam: normal color, warm, dry, other (right arm with large area of erythema with some yellow drainage and crusting. It is inside the lines drawn on his arm. His right hand is also a little swollen.) Respiratory Exam: normal breath sounds, lungs clear, No respiratory distress, No crackles/rales, No rhonchi, No wheezing Cardiovascular Exam: regular rate/rhythm, normal heart sounds, No murmur, No friction rub, No gallop Gastrointestinal/Abdomen Exam: soft, normal bowel sounds, No tenderness, No distention, No mass Extremity Exam: other (no c/c/e) OBJECTIVE DATA Vital Signs: Vital Signs - 24 hr Temp Pulse Resp BP Pulse Ox 08/17/16 07:28 98.5 F 76 20 130/68 96 08/17/16 04:00 97.9 F 87 22 132/83 92 L 08/17/16 00:00 98.5 F 94 H 21 137/68 94 L 08/16/16 20:20 90 20 95 08/16/16 20:00 98.5 F 92 H 22 138/80 95 08/16/16 16:00 98.7 F 87 20 128/72 97 08/16/16 12:00 98.3 F 95 H 20 131/69 94 L Pain Assessment - Last Documented Pain Intensity 0 Pain Scale Used 0-10 Pain Scale,FLACC Intake and Output: Intake & Output 08/15/16 08/16/16 08/17/16 08/18/16 06:59 06:59 06:59 06:59 Intake Total 5711 3481 2399 Output Total 2900 400 Balance 2890 3081 2399 Weight 93.168 kg Lab Results: Lab Results-Last 24 Hours 08/17/16 08/17/16 Range/Units 05:00 05:00 WBC 7.1 (4.0-10.5) K/mm3 RBC 3.90 L (4.1-5.6) M/mm3 Hgb 12.0 L (12.5-18.0) gm/dl Hct 37.0 L (42-50) % MCV 94.9 (78-100) fl MCH 30.7 (26-32) pg MCHC 32.4 (32-36) g/dl RDW 14.1 H (11.5-14.0) % Plt Count 184 (150-450) K/mm3 MPV 9.8 H (6-9.5) fl Segmented Neutrophils 60 (36.-66.) % Lymphocytes (Manual) 38 (24-44) % Monocytes (Manual) 1 (0.0-12.0) % Eosinophils (Manual) 1 (0.00-3.0) % Differential Comment ABNORMAL Platelet Estimate NORMAL (NORMAL) Poikilocytosis 1+ Anisocytosis 1+ Sodium 143 (136-145) mEq/L Potassium 3.7 (3.5-5.1) mEq/L Chloride 109 H (98-107) mEq/L Carbon Dioxide 24.2 (21-32) mEq/L Anion Gap 13.8 (5-15) MEQ/L BUN 7 L (9-20) mg/dL Creatinine 0.95 (0.55-1.30) mg/dl Estimated GFR > 60 ML/MIN Glucose 101 (70-110) MG/DL Calcium 8.5 (8.5-10.1) mg/dL Assessment/Plan (1) Cellulitis of right forearm Current Visit: Yes Status: Acute Assessment & Plan: Continue with IV vancomycin and ceftriaxone. Awaiting final identification on wound culture from right arm which is growing gram positive organism. WBC is now in the normal range. Code(s): L03.113 - CELLULITIS OF RIGHT UPPER LIMB (2) Chronic pain syndrome Current Visit: Yes Status: Chronic Assessment & Plan: On home medication. Followed by Dr. Jimenez as outpatient per PCP's note yesterday. Code(s): G89.4 - CHRONIC PAIN SYNDROME (3) Anxiety Current Visit: Yes Status: Chronic Assessment & Plan: Stable. Code(s): F41.9 - ANXIETY DISORDER, UNSPECIFIED (4) Pneumonia Current Visit: Yes Status: Acute Assessment & Plan: Clinical diagnosis on admission. Will stop azithromycin after 5 days. Continue ceftriaxone. Improved. Code(s): J18.9 - PNEUMONIA, UNSPECIFIED ORGANISM
[2016-08-17] MEDS: Zithromax 500 MG/ 250 ML NaCl Premix 500 MG/250 ML IVPB IV SCH (17:33)
[2016-08-17] MEDS ORDERED: VANCOCIN 1 GM VIAL*** 1.25 GM in Sodium Chloride 0.9% 250 ML 250 ML IV SCH (18:00)
[2016-08-17] MEDS: ZOCOR 20MG PO SCH (21:43)
[2016-08-17] MEDS: ELAVIL 25 MG PO SCH (21:44)
[2016-08-18 04:03] VITALS: PULSE 81
[2016-08-18 07:11] VITALS: BP 131/78; O2SAT 97
--- NOTE | 2016-08-18 08:17 | PCM.DCORD ---
- Discharge Discharge Date: 08/18/16 Disposition: Home, Self-Care Condition: Fair Prescriptions: New Amoxicillin/Potassium Clav [Augmentin 875-125 Tablet] 1 each PO BID #20 tablet Fluticasone Propionate [Flonase NASAL] 0 gm NS DAILY #0 bottle Continue Oxycodone HCl Cr 20 mg [Oxycontin 20 MG ER] 20 mg PO Q12H Naloxegol Oxalate [Movantik] 12.5 mg PO DAILY Lamotrigine 25 mg PO DAILY Fluoxetine HCl 10 mg [Prozac 10 mg] 40 mg PO QAM Clonidine HCl 0.1 mg [Catapres 0.1 MG] 0.1 mg PO BID PRN PRN Reason: Elevated Blood Pressure Rosuvastatin Calcium [Crestor] 40 mg PO DAILY Lansoprazole 30 mg PO DAILY Gabapentin 300 mg PO TID Amitriptyline HCl 25 mg [Elavil 25 mg] 75 mg PO HS Aspirin 81 gm Chew [Baby Aspirin 81 mg Chew] 81 mg PO DAILY Discontinued Hydrocodone Bit/Acetaminophen [Hydrocodon-Acetaminoph 7.5-325] 1 each PO Q4- 6HPRN PRN PRN Reason: Pain Alprazolam 1 mg [Xanax 1 mg] 1 mg PO TID PRN Follow up with: PAOLA VILLALOBOS [Primary Care Provider] - Forms: Patient Portal Information
[2016-08-18] MEDS: Prozac 20 MG PO SCH (08:36)
[2016-08-18] MEDS: ECOTRIN 81 MG PO SCH (08:36)
[2016-08-18] MEDS: CLARITIN 10 MG PO SCH (08:36)
[2016-08-18] MEDS: Oxycontin 20 MG ER PO SCH (08:37)
[2016-08-18] MEDS: lamICTAL 100MG TABLET PO SCH (08:37)
[2016-08-18] MEDS: Flonase NASAL NS SCH (08:37)
[2016-08-18] MEDS: Protonix 40MG Tablet PO SCH (08:37)
[2016-08-18] MEDS: NEURONTIN 300 MG PO SCH (08:37)
[2016-08-18] MEDS: ROCEPHIN 1 Gm-D5w 50 ml Bag** 1 G/50 ML IVPB IV SCH (08:38)
[2016-08-18] MEDS: PATIENT OWN MEDICATION PO SCH (08:39)
[2016-08-18] MEDS: Miralax Powder 17GM PACKET PO SCH (08:43)
--- NOTE | 2016-08-19 08:35 | PCM.DS ---
Discharge Summary Date of Admission: 08/13/16 19:40 Date of Discharge: 08/18/16 Admitting Physician: PAOLA VILLALOBOS Primary Care Provider: PAOLA VILLALOBOS Allergies Allergies latex Allergy (Severe, Verified 08/13/16 18:09) Swelling pt states urinary catheter used w/ severe swelling of penis nitroglycerin [From Nitrolingual] Allergy (Severe, Verified 08/13/16 18:09) drops blood pressure immediately iodine Allergy (Verified 08/13/16 18:09) muscle relaxer Allergy (Uncoded 08/13/16 18:09) Hospital Summary - Hospital Course Hospital Course: He presented with swollen tender draining right forarm that had been worsening for 1 week he had initially 2 small lesions that were open then it became swollen painful and red. He was found to be septic with fever, elevated wbc and treated with fluids and iv antibiotics with vanc and ceftriaxone. There was also clinical concern for pneumonia at the time of presentation and was treated with 5 days of azithromycin as well. His cxr was ok and at time of discharge no pulmonary symptoms he continued to have some drainage and tenderness from the area of cellulitis. Culture showed strep. WIth the continued drainage he was changed to augmentin for gram negative coverage as well as strep coverage and to continue to keep wound covered. He will follow up as an outpatient. His fever had resolved and was ambulating in the halls and tolerating po well. - Vitals & Intake/Output Vital Signs: Vital Signs Temperature 98.3 F 08/18/16 07:10 Pulse Rate 81 08/18/16 07:10 Respiratory Rate 18 08/18/16 07:10 Blood Pressure 131/78 08/18/16 07:10 O2 Sat by Pulse Oximetry 97 08/18/16 07:10 Oxygen-Last Documented O2 Percentage 2 Liters = 28% Intake & Output: Intake & Output 08/16/16 08/17/16 08/18/16 08/19/16 11:59 11:59 11:59 11:59 Intake Total 3681 2199 1189 Output Total 400 Balance 3281 2199 1189 Weight 93.168 kg - Lab Result Diagrams: 08/17/16 05:00 08/17/16 05:00 Micro Results-Entire Visit: Microbiology 08/14/16 14:04 Gram Stain - Final Arm - Right Lower Wound Culture - Final Streptococcus Pyogenes Grp A - Procedures and Test Procedures and Tests throughout Hospitalization: Therapy Orders & Screens 08/13/16 21:01 Smoking Cessation Education ONCE Comment: Diagnosis: sepsis, cellulitis Rt FA, RLL Pnuemonia Smoking Status: Current some day smoker How long have you smoked: 1.5 Have you smoked in the past 12 months: Yes Approximately how many cigarettes per day: 20 Do you dip or chew tobacco: No 08/13/16 21:40 Oxygen NASAL CANNULA 2 lpm Comment: Diagnosis: sepsis, cellulitis Rt FA, RLL Pnuemonia 08/14/16 12:47 EKG ROUTINE Comment: Diagnosis: sepsis, cellulitis Rt FA, RLL Pnuemonia 08/15/16 12:54 EKG STAT Comment: Diagnosis: sepsis, cellulitis Rt FA, RLL Pnuemonia Discharge Exam General Appearance: no apparent distress, alert Neurologic Exam: alert, oriented x 3, cooperative, normal mood/affect, nml cerebellar function, sensation nml, No motor deficits Skin Exam: normal color, warm, dry Eye Exam: PERRL, EOMI, eyes nml inspection Ears, Nose, Throat Exam: normal ENT inspection, pharynx normal, moist mucous membranes Neck Exam: normal inspection, non-tender, supple, full range of motion Respiratory Exam: normal breath sounds, lungs clear, No respiratory distress Cardiovascular Exam: regular rate/rhythm, normal heart sounds Gastrointestinal/Abdomen Exam: soft, No tenderness, No mass Extremity Exam: normal inspection, other (right forarm dorsal aspect with redness no warmth tenderness and serous discharge the area has dimished in size based on drawings from initial presntation full range of motion of wrist, elbow and fingers are demonstrated.) Back Exam: normal inspection, normal range of motion, No CVA tenderness, No vertebral tenderness Male Genitalia Exam: deferred Rectal Exam: deferred Final Diagnosis/Problem List - Final Discharge Diagnosis/Problem (1) Cellulitis of right forearm Status: Acute (2) RLL pneumonia Status: Acute (3) Sepsis Status: Resolved (4) Anxiety Status: Chronic (5) Constipation Status: Chronic (6) Chronic pain syndrome Status: Chronic (7) Depression Status: Chronic - Discharge Discharge Date: 08/18/16 Disposition: Home, Self-Care Condition: Fair Prescriptions: New Amoxicillin/Potassium Clav [Augmentin 875-125 Tablet] 1 each PO BID #20 tablet Fluticasone Propionate [Flonase NASAL] 0 gm NS DAILY #0 bottle Continue Oxycodone HCl Cr 20 mg [Oxycontin 20 MG ER] 20 mg PO Q12H Naloxegol Oxalate [Movantik] 12.5 mg PO DAILY Lamotrigine 25 mg PO DAILY Fluoxetine HCl 10 mg [Prozac 10 mg] 40 mg PO QAM Clonidine HCl 0.1 mg [Catapres 0.1 MG] 0.1 mg PO BID PRN PRN Reason: Elevated Blood Pressure Rosuvastatin Calcium [Crestor] 40 mg PO DAILY Lansoprazole 30 mg PO DAILY Gabapentin 300 mg PO TID Amitriptyline HCl 25 mg [Elavil 25 mg] 75 mg PO HS Aspirin 81 gm Chew [Baby Aspirin 81 mg Chew] 81 mg PO DAILY Discontinued Hydrocodone Bit/Acetaminophen [Hydrocodon-Acetaminoph 7.5-325] 1 each PO Q4- 6HPRN PRN PRN Reason: Pain Alprazolam 1 mg [Xanax 1 mg] 1 mg PO TID PRN Instructions: Cellulitis -- Adult, Pneumonia -- Adult Follow up with: PAOLA VILLALOBOS [Primary Care Provider] - 08/25/16 9:30 am Forms: Discharge Instructions, Discharge Skin Assessment, Patient Portal Information
== END 2016-08-18 09:25 | disposition home or self-care (01) | DRG 602 ==
LOC: ED 17:52 → MED SURG 19:40
PROVIDERS: ADMIT Family Medicine; ATTEND Family Medicine
DX: L03.113 Cellulitis of right upper limb (principal); J18.1 Lobar pneumonia, unspecified organism; A41.9 Sepsis, unspecified organism; F33.40 Major depressive disorder, recurrent, in remission, unspecified; F41.9 Anxiety disorder, unspecified; K59.00 Constipation, unspecified; G89.4 Chronic pain syndrome; G47.30 Sleep apnea, unspecified; K21.9 Gastro-esophageal reflux disease without esophagitis; I49.9 Cardiac arrhythmia, unspecified; Z72.0 Tobacco use
CPT/HCPCS: 36000; 36415; 71010; 80048; 80053; 80202; 81002; 83605; 84484; 85025; 85610; 85730; 87040; 87070; 87077; 87086; 87631; 90471; 90715; 93005; 93041; 94760; 96360; 96361; 96365; 96372; 96374; 96376; 99285; J0456; J0696; J2060; J2405; J2550; J3370; A9270-GY

== ENCOUNTER 2017-02-04 11:07 | Emergency (ER) | payer MEDICARE ==
[2017-02-04] MEDS ORDERED: Zofran 4 MG/2 ML VIAL IV ONE (11:23)
[2017-02-04] MEDS ORDERED: MORPHINE SULFATE 4 MG INJ IV ONE (11:23)
[2017-02-04] MEDS ORDERED: Sodium Chloride 0.9% 1000 ML 1,000 ML IV STA (11:23)
--- NOTE | 2017-02-04 11:29 | ERPHSYRPT ---
- History of Present Illness Time Seen by Provider: 02/04/17 11:20 Historian: patient Exam Limitations: no limitations Patient Subjective Stated Complaint: PT states "I am sick as a dog. I have been vomiting and had diarrhea for the past week." Triage Nursing Assessment: Pt alert and oriented X 3, skin pwd. Pt ambulates without difficulty, able to speak in clear full sentences. Physician History: 66 y/o male comes to the ER with complaints of mid abdominal pain with multiple episodes of nausea, vomiting and diarrhea for the past week. Pt describes the pain as sharp, constant, as high as a 7/10 and not relieved by oxycodone. Pt states that he has been vomiting and having diarrhea 5-6 times per day. Pt feels very weak and has no energy. Pt also complains of lower chest pain, with mild pleuritic pain, similar to when he had pneumonia several years ago. Pt also says that he has had subjective fever. Timing/Duration: day(s) Activities at Onset: none Quality: sharpness Abdominal Pain Onset Location: periumbilical Pain Radiation: no radiation Modifying Factors: Improves With: nothing Associated Symptoms: diarrhea, nausea, vomiting, weakness Previous symptoms: no prior history Allergies/Adverse Reactions: latex Allergy (Severe, Verified 08/13/16 18:09) Swelling pt states urinary catheter used w/ severe swelling of penis nitroglycerin [From Nitrolingual] Allergy (Severe, Verified 08/13/16 18:09) drops blood pressure immediately iodine Allergy (Verified 08/13/16 18:09) muscle relaxer Allergy (Uncoded 08/13/16 18:09) Home Medications: Amitriptyline HCl 25 mg [Elavil 25 mg] 75 mg PO HS 08/13/16 [History] Aspirin 81 gm Chew [Baby Aspirin 81 mg Chew] 81 mg PO DAILY 08/13/16 [ History] Clonidine HCl 0.1 mg [Catapres 0.1 MG] 0.1 mg PO BID PRN 08/13/16 [History ] Fluoxetine HCl 10 mg [Prozac 10 mg] 40 mg PO QAM 08/13/16 [History] Gabapentin 300 mg PO TID 08/13/16 [History] Lamotrigine 25 mg PO DAILY 08/13/16 [History] Lansoprazole 30 mg PO DAILY 08/13/16 [History] Naloxegol Oxalate [Movantik] 12.5 mg PO DAILY 08/13/16 [History] Oxycodone HCl Cr 20 mg [Oxycontin 20 MG ER] 20 mg PO Q12H 08/13/16 [ History] Rosuvastatin Calcium [Crestor] 40 mg PO DAILY 08/13/16 [History] Hx Tetanus, Diphtheria Vaccination/Date Given: No Hx Influenza Vaccination/Date Given: No Hx Pneumococcal Vaccination/Date Given: No Immunizations Up to Date: Yes - Review of Systems Constitutional: Fever, Chills, Weakness Eyes: No Symptoms Ears, Nose, & Throat: No Symptoms Respiratory: No Cough, No Dyspnea Cardiac: Chest Pain, No Edema, No Syncope Abdominal/Gastrointestinal: Abdominal Pain, Diarrhea, No Nausea Genitourinary Symptoms: No Dysuria Musculoskeletal: Myalgias, No Back Pain, No Neck Pain Skin: No Rash Neurological: No Dizziness, No Focal Weakness, No Sensory Changes Psychological: No Symptoms Endocrine: No Symptoms All Other Systems: Reviewed and Negative - Past Medical History Pertinent Past Medical History: Yes Neurological History: Migraines ENT History: Cataracts Cardiac History: Arrhythmia, High Cholesterol, Myocardial Infarction (HI) Respiratory History: Sleep Apnea Endocrine Medical History: No Pertinent History Musculoskeletal History: No Pertinent History GI Medical History: GERD, Gallbladder Disease, Ulcer History: No Pertinent History Psycho-Social History: Anxiety, Depression, Panic Disorder Male Reproductive Disorders: No Pertinent History Other Medical History: catract left eye - Past Surgical History Past Surgical History: Yes Neuro Surgical History: No Pertinent History Cardiac: Cardiac Catheterization, Cardiac Stent Respiratory: No Pertinent History Gastrointestinal: Cholecystectomy Genitourinary: No Pertinent History Musculoskeletal: Other Male Surgical History: No Pertinent History Other Surgical History: disk removed in neck., L ear tubes placed. - Social History Smoking Status: Current every day smoker How long have you smoked: 50 years Exposure to second hand smoke: Yes Drug Use: none Patient Lives Alone: No - Nursing Vital Signs Nursing Vital Signs: Initial Vital Signs Temperature 98.4 F 02/04/17 11:14 Pulse Rate 96 H 02/04/17 11:14 Respiratory Rate 18 02/04/17 11:14 Blood Pressure 137/99 02/04/17 11:14 O2 Sat by Pulse Oximetry 96 02/04/17 11:14 Pain Scale Pain Intensity 2 - Physical Exam General Appearance: mild distress, alert Eye Exam: PERRL/EOMI, eyes nml inspection Ears, Nose, Throat Exam: normal ENT inspection, pharynx normal, moist mucous membranes Neck Exam: normal inspection, non-tender, supple, full range of motion Respiratory Exam: normal breath sounds, lungs clear, No respiratory distress Cardiovascular Exam: regular rate/rhythm, normal heart sounds Gastrointestinal/Abdomen Exam: soft, normal bowel sounds, tenderness, No distention, No mass Back Exam: normal inspection, normal range of motion, No CVA tenderness, No vertebral tenderness Extremity Exam: normal inspection, normal range of motion, pelvis stable Neurologic Exam: alert, oriented x 3, cooperative, normal mood/affect, nml cerebellar function, sensation nml, No motor deficits Skin Exam: normal color, warm, dry SpO2: 96 Oxygen Delivery: Room Air - Course Nursing assessment & vital signs reviewed: Yes Ordered Tests: Active Orders 24 hr Category Date Time Status EKG-ER Only STAT Care 02/04/17 11:23 Active IV Insertion STAT Care 02/04/17 11:23 Active NPO (ED) STAT Care 02/04/17 11:23 Active ABDOMEN AND PELVIS W CONTRAST [CT] Stat Exams 02/04/17 11:24 Completed CHEST 2 VIEWS (PA AND LAT) Stat Exams 02/04/17 11:23 Completed AMYLASE Stat Lab 02/04/17 11:30 Completed BLOOD CULTURE Stat Lab 02/04/17 11:40 Received CBC W DIFF Stat Lab 02/04/17 11:30 Completed CMP Stat Lab 02/04/17 11:30 Completed LIPASE Stat Lab 02/04/17 11:30 Completed Lactic Acid Stat Lab 02/04/17 11:23 Completed TROPONIN Q3H Lab 02/04/17 11:30 Completed TROPONIN Q3H Lab 02/04/17 14:30 Ordered TROPONIN Q3H Lab 02/04/17 17:30 Ordered TROPONIN Q3H Lab 02/04/17 20:30 Ordered TROPONIN Q3H Lab 02/04/17 23:30 Ordered UA W/RFX UR CULTURE Stat Lab 02/04/17 13:45 Completed Medication Summary Discontinued Medications Generic Name Dose Route Start Last Admin Trade Name Freq PRN Reason Stop Dose Admin Diphenhydramine HCl 50 mg 02/04/17 11:45 02/04/17 11:46 Benadryl 50 Mg/Ml IV 02/04/17 11:46 50 mg STAT ONE Administration Diphenhydramine HCl Confirm 02/04/17 11:46 Benadryl 50 Mg/Ml Administered 02/04/17 11:47 Dose 50 mg .ROUTE .STK-MED ONE Sodium Chloride 1,000 mls @ 999 mls/hr 02/04/17 11:23 02/04/17 11:36 Sodium Chloride 0.9% 1000 Ml IV 02/04/17 12:23 999 mls/hr .Q1H1M STA Administration Sodium Chloride Confirm 02/04/17 11:35 Sodium Chloride 0.9% 1000 Ml Administered 02/04/17 11:36 Dose 1,000 mls @ ud .ROUTE .STK-MED ONE Morphine Sulfate 4 mg 02/04/17 11:23 02/04/17 11:36 Morphine Sulfate 4 Mg Inj IV 02/04/17 11:24 4 mg STAT ONE Administration Morphine Sulfate Confirm 02/04/17 11:35 Morphine Sulfate 4 Mg Inj Administered 02/04/17 11:36 Dose 4 mg .ROUTE .STK-MED ONE Ondansetron HCl 4 mg 02/04/17 11:23 02/04/17 11:36 Zofran 4 Mg/2 Ml Vial IV 02/04/17 11:24 4 mg STAT ONE Administration Ondansetron HCl Confirm 02/04/17 11:35 Zofran 4 Mg/2 Ml Vial Administered 02/04/17 11:36 Dose 4 mg .ROUTE .STK-MED ONE Lab/Rad Data: Laboratory Result Diagrams 02/04/17 11:30 02/04/17 11:30 Laboratory Results 02/04/17 02/04/17 02/04/17 Range/Units 13:45 11:30 11:30 WBC (4.0-10.5) K/mm3 RBC (4.1-5.6) M/mm3 Hgb (12.5-18.0) gm/dl Hct (42-50) % MCV (78-100) fl MCH (26-32) pg MCHC (32-36) g/dl RDW (11.5-14.0) % Plt Count (150-450) K/mm3 MPV (6-9.5) fl Gran % (36.0-66.0) % Lymphocytes % (24.0-44.0) % Monocytes % (0.0-12.0) % Eosinophils % (0.00-5.0) % Basophils % (0.0-0.4) % Basophils # (0-0.4) Sodium 135 L (136-145) mEq/L Potassium 3.6 (3.5-5.1) mEq/L Chloride 101 (98-107) mEq/L Carbon Dioxide 24.5 (21-32) mEq/L Anion Gap 13.3 (5-15) MEQ/L BUN 13 (9-20) mg/dL Creatinine 1.10 (0.55-1.30) mg/dl Estimated GFR > 60 ML/MIN Glucose 120 H (70-110) MG/DL Lactic Acid (0.4-2.0) Calcium 8.7 (8.5-10.1) mg/dL Total Bilirubin 0.50 (0.2-1.0) mg/dL AST 34 (15-37) U/L ALT 30 (12-78) U/L Alkaline Phosphatase 77 (46-116) U/L Troponin I < 0.017 (0.000-0.056) ng/ml Serum Total Protein 7.2 (6.4-8.2) gm/dL Albumin 3.3 L (3.4-5.0) g/dL Amylase 46 (25-115) U/L Lipase 139 (73-393) U/L Ur Collection Type CLEAN CATCH Urine Color YELLOW (YELLOW) Urine Appearance CLEAR (CLEAR) Urine pH 5.0 (5-6) Ur Specific [place] 1.015 (1.005-1.025) Urine Protein NEGATIVE (Negative) Urine Ketones NEGATIVE (NEGATIVE) Urine Blood NEGATIVE (0-5) Johann/ul Urine Nitrite NEGATIVE (NEGATIVE) Urine Bilirubin NEGATIVE (NEGATIVE) Urine Urobilinogen NORMAL (0-1) mg/dL Ur Leukocyte Esterase NEGATIVE (NEGATIVE) Urine Culture Reflexed NO (NO) Urine Glucose NEGATIVE (NEGATIVE) mg/dL Specimen Received 02/04/17 1345 02/04/17 02/04/17 Range/Units 11:30 11:23 WBC 5.9 (4.0-10.5) K/mm3 RBC 5.01 (4.1-5.6) M/mm3 Hgb 15.0 (12.5-18.0) gm/dl Hct 45.4 (42-50) % MCV 90.6 (78-100) fl MCH 29.9 (26-32) pg MCHC 33.0 (32-36) g/dl RDW 14.0 (11.5-14.0) % Plt Count 156 (150-450) K/mm3 MPV 10.1 H (6-9.5) fl Gran % 56.4 (36.0-66.0) % Lymphocytes % 32.2 (24.0-44.0) % Monocytes % 10.1 (0.0-12.0) % Eosinophils % 1.0 (0.00-5.0) % Basophils % 0.3 (0.0-0.4) % Basophils # 0.02 (0-0.4) Sodium (136-145) mEq/L Potassium (3.5-5.1) mEq/L Chloride (98-107) mEq/L Carbon Dioxide (21-32) mEq/L Anion Gap (5-15) MEQ/L BUN (9-20) mg/dL Creatinine (0.55-1.30) mg/dl Estimated GFR ML/MIN Glucose (70-110) MG/DL Lactic Acid 1.0 (0.4-2.0) Calcium (8.5-10.1) mg/dL Total Bilirubin (0.2-1.0) mg/dL AST (15-37) U/L ALT (12-78) U/L Alkaline Phosphatase (46-116) U/L Troponin I (0.000-0.056) ng/ml Serum Total Protein (6.4-8.2) gm/dL Albumin (3.4-5.0) g/dL Amylase (25-115) U/L Lipase (73-393) U/L Ur Collection Type Urine Color (YELLOW) Urine Appearance (CLEAR) Urine pH (5-6) Ur Specific [place] (1.005-1.025) Urine Protein (Negative) Urine Ketones (NEGATIVE) Urine Blood (0-5) Johann/ul Urine Nitrite (NEGATIVE) Urine Bilirubin (NEGATIVE) Urine Urobilinogen (0-1) mg/dL Ur Leukocyte Esterase (NEGATIVE) Urine Culture Reflexed (NO) Urine Glucose (NEGATIVE) mg/dL Specimen Received - Progress Progress: improved Progress Note: 02/04/17 14:01 Pt feels better after receiving morphine, zofran and NS fluids. The CT scan abd/ pelvis, labs and vital signs are within normal limits. The UA is also within normal limits. Pt will be d/c home with a referral to GI for further recommendations. - Departure Time of Disposition: 14:02 Departure Disposition: Home Clinical Impression: Abdominal pain Qualifiers: Abdominal location: periumbilical Qualified Code(s): R10.33 - Periumbilical pain Condition: Stable Critical Care Time: Yes Critical Care Time(excluding separately billable procedures): 75-104 minutes Referrals: PAOLA VILLALOBOS [Primary Care Provider] - KATELYN SANCHEZ MD [NON-STAFF PHY W/O PRIVILEGES] - Instructions: Abdominal Pain-Adult Additional Instructions: Call Dr Sanchez's office in the morning to set up an appointment.
[2017-02-04] MEDS ORDERED: Zofran 4 MG/2 ML VIAL ONE (11:35)
[2017-02-04] MEDS ORDERED: MORPHINE SULFATE 4 MG INJ ONE (11:35)
[2017-02-04] MEDS ORDERED: Sodium Chloride 0.9% 1000 ML 1,000 ML ONE (11:35)
[2017-02-04] MEDS ORDERED: BENADRYL 50 MG/ML IV ONE (11:45)
[2017-02-04] MEDS ORDERED: BENADRYL 50 MG/ML ONE (11:46)
[2017-02-04 11:50] LABS: BASOPHIL % 0.3 % (0.0-0.4); Granulocytes % 56.4 % (36.0-66.0); Lymphocytes % 32.2 % (24.0-44.0); Mean Cell Volume 90.6 fl (78-100); Mean Corpuscular Hemoglobin 29.9 pg (26-32); Mean Platelet Volume 10.1 fl (6-9.5); Monocytes % 10.1 % (0.0-12.0); Platelet Count 156 K/mm3 (150-450); Red Blood Count 5.01 M/mm3 (4.1-5.6); White Blood Count 5.9 K/mm3 (4.0-10.5)
[2017-02-04 12:11] LABS: ALBUMIN 3.3 g/dL (3.4-5.0); ALKALINE PHOSPHATASE 77 U/L (46-116); ANION GAP 13.3 MEQ/L (5-15); BLOOD UREA NITROGEN 13 mg/dL (9-20); CHLORIDE 101 mEq/L (98-107); Carbon Dioxide 24.5 mEq/L (21-32); Glucose 120 MG/DL (70-110); LIPASE 139 U/L (73-393); Potassium 3.6 mEq/L (3.5-5.1); SGOT/AST 34 U/L (15-37); SGPT/ALT 30 U/L (12-78); SODIUM 135 mEq/L (136-145); Total Protein 7.2 gm/dL (6.4-8.2)
--- NOTE | 2017-02-04 13:05 | XRAY ---
Indication: Chest pain, nausea, vomiting, and diarrhea. Comparison: August 13, 2016. PA/lateral chest again demonstrates normal heart and lungs. Bony thorax intact again with mild scoliosis. Impression: Stable nonacute chest.
--- NOTE | 2017-02-04 13:10 | XRAY ---
Indication: Abdominal pain. Nausea, vomiting, and diarrhea. Multiple contiguous axial images obtained through the abdomen and pelvis using 80 cc Isovue 370 contrast only. Comparison: May 04, 2016. Lung bases again demonstrates minimal bibasilar dependent atelectasis. Heart is not enlarged. Noncontrasted stomach and bowel loops again nonobstructed. Stable minimal sigmoid diverticulosis. Normal appendix. No free fluid/air. Stable right renal cyst, calcified splenic granulomas, and cholecystectomy clips. Remaining liver, pancreas, spleen, adrenal glands, kidneys, ureters, and bladder appear unremarkable. Stable mild aortoiliac calcifications. No AAA or pathologic retroperitoneal lymphadenopathy. Osseous structures intact again with mild degenerative changes throughout the lower spine and mild levorotoscoliosis. Impression: 1. Stable sigmoid diverticulosis and right renal cyst. 2. No new/acute intra-abdominal/pelvic abnormalities. CT DI 23.10
[2017-02-04 13:54] LABS: Bilirubin NEGATIVE (NEGATIVE); Blood NEGATIVE Ery/ul (0-5); Collection Type CLEAN CATCH; Glucose NEGATIVE (NEGATIVE); Leukocyte Esterase NEGATIVE (NEGATIVE)
[2017-02-04 13:55] LABS: ADD URINE CULTURE? NO (NO); COMPLETE URINE MICROSCOPIC? NO
[2017-02-04 14:03] VITALS: O2SAT 96
[2017-02-04 14:13] VITALS: BP 114/56; PULSE 80
== END 2017-02-04 14:13 | disposition home or self-care (01) ==
LOC: ED 11:07
DX: R10.33 Periumbilical pain (principal); R19.7 Diarrhea, unspecified; R11.2 Nausea with vomiting, unspecified; R53.1 Weakness; Z79.899 Other long term (current) drug therapy; Z79.891 Long term (current) use of opiate analgesic; E78.00 Pure hypercholesterolemia, unspecified; I25.2 Old myocardial infarction; Z98.61 Coronary angioplasty status
CPT/HCPCS: 36000; 36415; 71020; 74177; 80053; 81002; 82150; 83605; 83690; 84484; 85025; 87040; 93005; 96360; 99284; J1200; J2270; J2405

== ENCOUNTER 2019-04-17 22:51 | Emergency (ER) | payer MEDICARE ==
[2019-04-17] MEDS ORDERED: Sodium Chloride 0.9% 1000 ML 1,000 ML ONE (23:08)
[2019-04-17] MEDS ORDERED: MORPHINE SULFATE 4 MG INJ ONE (23:08)
[2019-04-17] MEDS ORDERED: Zofran 4 MG/2 ML VIAL ONE (23:08)
[2019-04-17] MEDS ORDERED: BABY ASPIRIN 81 MG CHEW ONE (23:08)
[2019-04-17] MEDS: MORPHINE SULFATE 4 MG INJ IV ONE (23:12)
[2019-04-17] MEDS: Zofran 4 MG/2 ML VIAL IV ONE (23:12)
--- NOTE | 2019-04-17 23:14 | ERPHSYRPT ---
- History of Present Illness Time Seen by Provider: 04/17/19 22:53 Historian: patient, family Physician History: Patient is here with chest pain. Patient states it has been on and off over 24 to 40 hours. Patient has no falls or trauma. Patient states that acutely got worse within the last hour. He states that he does have a history of a heart attack. States it feels like his previous heart attack. Patient has 1 stent. Patient does not take his Plavix secondary to cost. Patient states that he continues to smoke cigarettes. Patient did have one episode of vomiting here in the ER. States he does feel nauseous at home as well. Location: chest, left side Quality: sharp Radiation: down left arm Severity: moderate Duration: 24-48 hours Timing: intermittent Modifying factors/associated signs and symptoms: h/o of ID, previous stent Aspirin Treatment Today: no aspirin today Allergies/Adverse Reactions: latex Allergy (Severe, Verified 04/17/19 23:19) Swelling pt states urinary catheter used w/ severe swelling of penis nitroglycerin [From Nitrolingual] Allergy (Severe, Verified 04/17/19 23:19) drops blood pressure immediately iodine Allergy (Verified 04/17/19 23:19) muscle relaxer Allergy (Uncoded 04/17/19 23:19) Home Medications: Oxycodone HCl Cr 20 mg [Oxycontin 20 MG ER] 20 mg PO Q12H 08/13/16 [ History] Lansoprazole 30 mg PO DAILY 04/17/19 [History] Hx Tetanus, Diphtheria Vaccination/Date Given: No Hx Influenza Vaccination/Date Given: No Hx Pneumococcal Vaccination/Date Given: No - Review of Systems Constitutional: No Fever, No Chills Eyes: No Symptoms Ears, Nose, & Throat: No Symptoms Respiratory: Dyspnea, No Cough Cardiac: Chest Pain, No Edema, No Syncope Abdominal/Gastrointestinal: Vomiting, No Abdominal Pain, No Nausea, No Diarrhea Genitourinary Symptoms: No Dysuria Musculoskeletal: No Back Pain, No Neck Pain Skin: No Rash Neurological: No Dizziness, No Focal Weakness, No Sensory Changes Psychological: No Symptoms Endocrine: No Symptoms All Other Systems: Reviewed and Negative - Past Medical History Pertinent Past Medical History: Yes Neurological History: Migraines ENT History: Cataracts Cardiac History: Arrhythmia, High Cholesterol, Myocardial Infarction ([place]) Respiratory History: Sleep Apnea Endocrine Medical History: No Pertinent History Musculoskeletal History: No Pertinent History GI Medical History: GERD, Gallbladder Disease, Ulcer History: No Pertinent History Psycho-Social History: Anxiety, Depression, Panic Disorder Male Reproductive Disorders: Other Other Medical History: catract left eye. pt states he had urinary catheter and his penis was very swollen. 06/17/17 pt denies any hx of sleep apnea. - Past Surgical History Past Surgical History: Yes Neuro Surgical History: No Pertinent History Cardiac: Cardiac Catheterization, Cardiac Stent Respiratory: No Pertinent History Gastrointestinal: Cholecystectomy Genitourinary: No Pertinent History Musculoskeletal: Other Male Surgical History: No Pertinent History Other Surgical History: disk removed in neck., L ear tubes placed. - Social History Smoking Status: Current every day smoker How long have you smoked: 50 years Exposure to second hand smoke: Yes Drug Use: none Patient Lives Alone: No - Nursing Vital Signs Nursing Vital Signs: Initial Vital Signs Temperature 98.6 F 04/17/19 23:09 Pulse Rate 98 H 04/17/19 23:09 Respiratory Rate 20 04/17/19 23:09 Blood Pressure 145/86 04/17/19 23:09 O2 Sat by Pulse Oximetry 99 04/17/19 23:09 Pain Scale Pain Intensity 4 - Physical Exam General Appearance: alert, other (Pale, diaphoretic, uncomfortable.) Eye Exam: PERRL/EOMI, eyes nml inspection Ears, Nose, Throat Exam: normal ENT inspection, moist mucous membranes Neck Exam: normal inspection, non-tender, supple, full range of motion Respiratory Exam: normal breath sounds, lungs clear, No respiratory distress Cardiovascular Exam: regular rate/rhythm, normal heart sounds Gastrointestinal/Abdomen Exam: soft, No tenderness, No mass Back Exam: normal inspection, No CVA tenderness, No vertebral tenderness Extremity Exam: normal inspection, normal range of motion Neurologic Exam: alert, oriented x 3, cooperative, normal mood/affect, sensation nml, No motor deficits Skin Exam: normal color, warm, dry Ordered Tests: Active Orders 24 hr Category Date Time Status Retread Operator STAT Care 04/17/19 22:54 Active EKG-ER Only STAT Care 04/17/19 22:53 Active IV Insertion STAT Care 04/17/19 22:53 Active CHEST 1 VIEW (PORTABLE) Stat Exams 04/17/19 22:54 Taken CBC W DIFF Stat Lab 04/17/19 23:12 Completed CMP Stat Lab 04/17/19 23:12 Completed NT PRO BNP Stat Lab 04/17/19 23:12 Completed TROPONIN Q3H Lab 04/17/19 23:12 Completed TROPONIN Q3H Lab 04/18/19 02:00 Ordered TROPONIN Q3H Lab 04/18/19 05:00 Ordered TROPONIN Q3H Lab 04/18/19 08:00 Ordered TROPONIN Q3H Lab 04/18/19 11:00 Ordered Medication Summary Generic Name Dose Route Start Last Admin Trade Name Freq PRN Reason Stop Dose Admin Heparin Sodium/Dextrose 250 mls @ 10 mls/hr 04/17/19 23:22 Heparin 25,000 Units/D5w 250ml Premix IV 05/17/19 23:21 .Q24H SENG Discontinued Medications Generic Name Dose Route Start Last Admin Trade Name Freq PRN Reason Stop Dose Admin Aspirin 324 mg 04/17/19 22:53 04/17/19 23:15 Baby Aspirin 81 Mg Chew PO 04/17/19 22:54 324 mg STAT ONE Administration Aspirin Confirm 04/17/19 23:08 Baby Aspirin 81 Mg Chew Administered 04/17/19 23:09 Dose 324 mg .ROUTE .STK-MED ONE Heparin Sodium (Beef Lung) 5,000 unit 04/17/19 23:07 04/17/19 23:23 Heparin 5000 Units/0.5 Ml (High Risk Med) IV 04/17/19 23:08 5,000 unit STAT ONE Administration Heparin Sodium (Beef Lung) Confirm 04/17/19 23:17 Heparin 5000 Units/0.5 Ml (High Risk Med) Administered 04/17/19 23:18 Dose 5,000 unit .ROUTE .STK-MED ONE Sodium Chloride 1,000 mls @ 999 mls/hr 04/17/19 22:53 04/17/19 23:15 Sodium Chloride 0.9% 1000 Ml IV 04/17/19 23:53 999 mls/hr .Q1H1M STA Administration Heparin Sodium/Dextrose 250 mls @ 10 mls/hr 04/17/19 23:30 Heparin 25,000 Units/D5w 250ml Premix IV 05/17/19 23:29 .Q24H SENG Sodium Chloride Confirm 04/17/19 23:08 Sodium Chloride 0.9% 1000 Ml Administered 04/17/19 23:09 Dose 1,000 mls @ ud .ROUTE .STK-MED ONE Heparin Sodium/Dextrose Confirm 04/17/19 23:18 Heparin 25,000 Units/D5w 250ml Premix Administered 04/17/19 23:19 Dose 25,000 units in 250 mls @ ud IV .STK-MED ONE Morphine Sulfate 4 mg 04/17/19 22:53 04/17/19 23:12 Morphine Sulfate 4 Mg Inj IV 04/17/19 22:54 4 mg STAT ONE Administration Morphine Sulfate Confirm 04/17/19 23:08 Morphine Sulfate 4 Mg Inj Administered 04/17/19 23:09 Dose 4 mg .ROUTE .STK-MED ONE Ondansetron HCl 4 mg 04/17/19 22:53 04/17/19 23:12 Zofran 4 Mg/2 Ml Vial IV 04/17/19 22:54 4 mg STAT ONE Administration Ondansetron HCl Confirm 04/17/19 23:08 Zofran 4 Mg/2 Ml Vial Administered 04/17/19 23:09 Dose 4 mg .ROUTE .STK-MED ONE Lab/Rad Data: Laboratory Result Diagrams 04/17/19 23:12 04/17/19 23:12 Laboratory Results 04/17/19 04/17/19 04/17/19 Range/Units 23:12 23:12 23:12 WBC 11.5 H (4.0-10.5) K/mm3 RBC 4.97 (4.1-5.6) M/mm3 Hgb 15.1 (12.5-18.0) gm/dl Hct 46.7 (42-50) % MCV 94.0 (78-100) fl MCH 30.4 (26-32) pg MCHC 32.3 (32-36) g/dl RDW 14.0 (11.5-14.0) % Plt Count 195 (150-450) K/mm3 MPV 9.4 (7.5-11.0) fl Gran % 48.0 (36.0-66.0) % Eos # (Auto) 0.36 (0-0.5) Absolute Lymphs (auto) 4.57 (1.0-4.6) Absolute Monos (auto) 0.98 (0.0-1.3) Lymphocytes % 39.8 (24.0-44.0) % Monocytes % 8.5 (0.0-12.0) % Eosinophils % 3.1 (0.00-5.0) % Basophils % 0.6 (0.0-0.4) % Absolute Granulocytes 5.49 (1.4-6.9) Basophils # 0.07 (0-0.4) Sodium 140 (137-145) mmol/L Potassium 3.7 (3.5-5.1) mmol/L Chloride 106 (98-107) mmol/L Carbon Dioxide 25 (22-30) mmol/L Anion Gap 12.2 (5-15) MEQ/L BUN 10 (9-20) mg/dL Creatinine 1.22 (0.66-1.25) mg/dL Estimated GFR > 60.0 ML/MIN Glucose 133 H (74-106) mg/dL Calcium 9.6 (8.4-10.2) mg/dL Total Bilirubin 0.50 (0.2-1.3) mg/dL AST 41 (17-59) U/L ALT 34 (0-50) U/L Alkaline Phosphatase 84 (38-126) U/L Troponin I 0.016 (0.000-0.034) ng/mL NT-Pro-B Natriuret Pep 91.6 (0-900) pg/mL Serum Total Protein 7.8 (6.3-8.2) g/dL Albumin 4.3 (3.5-5.0) g/dL - Progress Progress: improved Air Movement: good Progress Note: 04/17/19 23:11 Initial EKG is somewhat concerning for possible STEMI. Patient has lateral depression in V3 through V6 with slight elevation in V1 and V2. Patient also has elevation in aVR. Slight elevation in lead III. The EKG was repeated 10 minutes later and these dynamic EKG changes had improved. Patient no longer having the ST elevation or depression. Previous EKG to compare to is from 2017. Patient's chest pain is somewhat improved at this point time. Given that his dynamic EKG changes have resolved. We will not activate a STEMI. However, we will repeat the EKG as needed based on his pain and symptoms this evening. Given his changes and him not being on Plavix, I will start heparin here in the emergency department. Patient will also receive aspirin, Zofran, pain control. We will continue cardiac pathways at this point in time. 04/18/19 00:08 First troponin came back negative. EKG has remained normalized. Patient feeling improved in general. I do believe patient needs to be somewhere with cardiology tonight. Discussed over the phone with on-call [facility] physician, Dr. Gomez. He accepted the patient to the emergency department. Discussed this with the patient and his niece. They feel comfortable with the plan. Patient currently hemodynamically stable. ED critical care statement As staff physician, I have provided critical care. Time: 45 Criteria for critical illness: Acute coronary syndrome, ST elevation on EKG Treatment and management provided include: Coordination of management with ETC care team, consultants, and inpatient care team. [id number] assessment of condition and response to therapy. Review and interpretation of emergent diagnostic testing. Medical chart review and completion. Direction and immediate supervision of the following therapy: Critical care was time spent personally by me on the following activities: blood draw for specimens, development of treatment plan with patient or surrogate, discussions with consultants, discussions with primary provider, interpretation of cardiac output measurements, evaluation of patient&# 39;s response to treatment, examination of patient, obtaining history from patient or surrogate, ordering and performing treatments and interventions, ordering and review of laboratory studies, ordering and review of radiographic studies, pulse oximetry, re-evaluation of patient's condition and review of old charts. This time was independent of all procedures performed. Counseled pt/family regarding: lab results, diagnosis - Departure Departure Disposition: Transfer, Senior Living/[facility] Clinical Impression: Acute electrocardiogram changes, Chest pain with high risk of acute coronary syndrome Condition: Stable Critical Care Time: Yes Critical Care Time(excluding separately billable procedures): Critical 30-74 mins Referrals: ONEL SYED [Primary Care Provider] -
[2019-04-17] MEDS: Sodium Chloride 0.9% 1000 ML 1,000 ML IV STA (23:15)
[2019-04-17] MEDS: BABY ASPIRIN 81 MG CHEW PO ONE (23:15)
[2019-04-17 23:16] LABS: Absolute Neutrophil Ct (ANC) 5.49 (1.4-6.9); BASOPHIL % 0.6 % (0.0-0.4); Basophil (Absolute #) 0.07 (0-0.4); Eosinophil % 3.1 % (0.00-5.0); Eosinophil (Absolute #) 0.36 (0-0.5); Hematocrit 46.7 % (42-50); Hemoglobin 15.1 gm/dl (12.5-18.0); Lymphocyte (Absolute #) 4.57 (1.0-4.6); Lymphocytes % 39.8 % (24.0-44.0); Mean Corpuscular Hemoglobin 30.4 pg (26-32); Mean Corpuscular Hgb Concent. 32.3 g/dl (32-36); Mean Platelet Volume 9.4 fl (7.5-11.0); Monocyte (Absolute #) 0.98 (0.0-1.3); Monocytes % 8.5 % (0.0-12.0); Platelet Count 195 K/mm3 (150-450); Red Blood Count 4.97 M/mm3 (4.1-5.6); White Blood Count 11.5 K/mm3 (4.0-10.5)
[2019-04-17] MEDS ORDERED: Heparin 5000 UNITS/0.5 ML (HIGH RISK MED) ONE (23:17)
[2019-04-17] MEDS ORDERED: Heparin 25,000 units/D5W 250ML PREMIX 25,000 UNITS/250 ML BAG IV ONE (23:18)
[2019-04-17] MEDS ORDERED: Heparin 25,000 units/D5W 250ML PREMIX 25,000 UNITS/250 ML BAG IV SCH (23:22)
[2019-04-17] MEDS: Heparin 5000 UNITS/0.5 ML (HIGH RISK MED) IV ONE (23:23)
[2019-04-17] MEDS ORDERED: Heparin 25,000 units/D5W 250ML PREMIX 250 ML IV SCH (23:30)
[2019-04-17 23:36] LABS: ALBUMIN 4.3 g/dL (3.5-5.0); ALKALINE PHOSPHATASE 84 U/L (38-126); ANION GAP 12.2 MEQ/L (5-15); BLOOD UREA NITROGEN 10 mg/dL (9-20); CHLORIDE 106 mmol/L (98-107); Calcium 9.6 mg/dL (8.4-10.2); Carbon Dioxide 25 mmol/L (22-30); Creatinine 1 1.22 mg/dL (0.66-1.25); Glucose 133 mg/dL (74-106); NT PRO BNP 91.6 pg/mL (0-900); Potassium 3.7 mmol/L (3.5-5.1); SGOT/AST 41 U/L (17-59); SGPT/ALT 34 U/L (0-50); SODIUM 140 mmol/L (137-145); Total Protein 7.8 g/dL (6.3-8.2)
[2019-04-17 23:57] VITALS: O2SAT 97
[2019-04-18 00:53] VITALS: BP 101/57; PULSE 86
--- NOTE | 2019-04-18 09:03 | XRAY ---
Indication: Chest pain radiating left arm. Emesis. Comparison: February 04, 2017. Portable chest again demonstrates normal heart and lungs. Bony thorax intact again with minimal dextroscoliosis. No new/acute findings.
== END 2019-04-18 00:46 | disposition short-term general hospital (02) ==
LOC: ED 22:51
DX: R94.31 Abnormal electrocardiogram [ECG] [EKG] (principal); R07.9 Chest pain, unspecified; E78.00 Pure hypercholesterolemia, unspecified; I25.2 Old myocardial infarction
CPT/HCPCS: 36000; 36415; 71045; 80053; 83880; 84484; 85025; 93005; 93041; 96374; 96375; 99285; 99291; J1644; J2270; J2405; A9270-GY

== ENCOUNTER 2019-06-27 14:48 | Emergency (ER) | payer MEDICARE ==
--- NOTE | 2019-06-27 14:53 | ERPHSYRPT ---
- History of Present Illness Time Seen by Provider: 06/27/19 14:53 Historian: patient Exam Limitations: no limitations Physician History: The 68-year-old white male who within the last couple weeks was seen at [facility] and had myocardial infarction. Patient was placed on several medications. Since the patient's been home he has had decreased appetite and increasing shortness of breath. He presents today with those symptoms as well as some epigastric discomfort. Patient's water meter installer is Dr. Weiner. pt has a monitoring vest in place. Apparently, it has been used to determine whether or not the patient might need a pacemaker in the near future. Timing/Duration: day(s) (Days), worse Activities at Onset: none Quality: aching Abdominal Pain Onset Location: epigastric (Area) Pain Radiation: no radiation Severity of Pain-Max: mild Severity of Pain-Current: mild Modifying Factors: Improves With: nothing Associated Symptoms: loss of appetite, shortness of breath Previous symptoms: no prior history Allergies/Adverse Reactions: latex Allergy (Severe, Verified 04/17/19 23:19) Swelling pt states urinary catheter used w/ severe swelling of penis nitroglycerin [From Nitrolingual] Allergy (Severe, Verified 04/17/19 23:19) drops blood pressure immediately iodine Allergy (Verified 04/17/19 23:19) muscle relaxer Allergy (Uncoded 04/17/19 23:19) Home Medications: Albuterol Sulfate [Proair Hfa] 8.5 gm IH DAILY 06/27/19 [History] Aspirin [Aspirin EC] 81 mg PO DAILY 06/27/19 [History] Fluticasone/Umeclidin/Vilanter [Trelegy Ellipta 100-62.5-25] 1 puff IH DAILY [History] Fluticasone/Umeclidin/Vilanter [Trelegy Ellipta 100-62.5-25] 1 puff IH DAILY [History] Furosemide 40 mg PO DAILY 06/27/19 [History] Lansoprazole 30 mg PO DAILY 06/27/19 [History] Nitroglycerin 0.4 mg SL DAILY PRN 06/27/19 [History] Oxycodone HCl Cr 20 mg [Oxycontin 20 MG ER] 20 mg PO BID 06/27/19 [History ] Potassium Chloride [Klor-Con] 20 meq PO DAILY 06/27/19 [History] Prasugrel HCL 10 MG [Effient 10 MG TABLET] 10 mg PO DAILY 06/27/19 [ History] Ranolazine 500 MG [Ranexa 500 MG] 500 mg PO BID 06/27/19 [History] Hx Tetanus, Diphtheria Vaccination/Date Given: No Hx Influenza Vaccination/Date Given: No Hx Pneumococcal Vaccination/Date Given: No Travel Risk - International Travel Have you traveled outside of the country in past 3 weeks: No Have you or anyone close to you been diagnosed with or: No Do your reside in a community with a known COVID-19 case?: Yes If Yes where:: [facility] - Coronavirus Screening Has patient experienced Coronavirus symptoms: No - Review of Systems Constitutional: Weakness Eyes: No Symptoms Ears, Nose, & Throat: No Symptoms Respiratory: No Symptoms Cardiac: No Symptoms Abdominal/Gastrointestinal: Abdominal Pain (Epigastric), Appetite Changes Genitourinary Symptoms: No Symptoms Musculoskeletal: No Symptoms Skin: No Symptoms Neurological: No Symptoms Psychological: No Symptoms Endocrine: No Symptoms Hematologic/Lymphatic: No Symptoms Immunological/Allergic: No Symptoms All Other Systems: Reviewed and Negative - Past Medical History Pertinent Past Medical History: Yes Neurological History: Migraines ENT History: Cataracts Cardiac History: Arrhythmia, High Cholesterol, Myocardial Infarction ([place]) Respiratory History: Sleep Apnea Endocrine Medical History: No Pertinent History Musculoskeletal History: No Pertinent History GI Medical History: GERD, Gallbladder Disease, Ulcer History: No Pertinent History Psycho-Social History: Anxiety, Depression, Panic Disorder Male Reproductive Disorders: Other Other Medical History: catract left eye. pt states he had urinary catheter and his penis was very swollen. 06/17/17 pt denies any hx of sleep apnea. - Past Surgical History Past Surgical History: Yes Neuro Surgical History: No Pertinent History Cardiac: Cardiac Catheterization, Cardiac Stent Respiratory: No Pertinent History Gastrointestinal: Cholecystectomy Genitourinary: No Pertinent History Musculoskeletal: Other Male Surgical History: No Pertinent History Other Surgical History: disk removed in neck., L ear tubes placed. - Social History Smoking Status: Current every day smoker How long have you smoked: 50 years Exposure to second hand smoke: Yes Drug Use: none Patient Lives Alone: No - Nursing Vital Signs Nursing Vital Signs: Initial Vital Signs Temperature 98.0 F 06/27/19 15:06 Pulse Rate 112 H 06/27/19 15:06 Respiratory Rate 24 06/27/19 15:06 Blood Pressure 119/77 06/27/19 15:06 O2 Sat by Pulse Oximetry 96 06/27/19 15:06 Pain Scale Pain Intensity 6 - Physical Exam General Appearance: mild distress, alert, anxiety Eye Exam: PERRL/EOMI, eyes nml inspection Ears, Nose, Throat Exam: normal ENT inspection, dry mucous membranes Neck Exam: normal inspection, non-tender, supple, full range of motion Respiratory Exam: normal breath sounds, lungs clear, airway intact, No chest tenderness, No respiratory distress Cardiovascular Exam: tachycardia Gastrointestinal/Abdomen Exam: soft, normal bowel sounds, tenderness ( Epigastric area), No guarding, No rebound Rectal Exam: not done Back Exam: normal inspection, normal range of motion, No CVA tenderness, No vertebral tenderness Extremity Exam: normal inspection, normal range of motion, pelvis stable Neurologic Exam: alert, oriented x 3, cooperative, food processor II-XII nml as tested Skin Exam: normal color, warm, dry Lymphatic Exam: No adenopathy SpO2 Interpretation: normal O2 Delivery: Room Air - Course Nursing assessment & vital signs reviewed: Yes EKG Interpreted by Me: RATE (101), Sinus Tach, Left [place] Deviation, Other ( Probable left atrial enlargement. Probable anteroseptal infarct that is recent. ) Ordered Tests: Active Orders 24 hr Category Date Time Status Anvilsmith STAT Care 06/27/19 15:42 Active EKG-ER Only STAT Care 06/27/19 15:40 Active IV Insertion STAT Care 06/27/19 15:40 Active Pulse Oximetry (ED) STAT Care 06/27/19 15:40 Active CHEST 1 VIEW (PORTABLE) Stat Exams 06/27/19 15:41 Completed CBC W DIFF Stat Lab 06/27/19 15:54 Completed CMP Stat Lab 06/27/19 15:54 Completed D-DIMER QUANTITATIVE Stat Lab 06/27/19 15:54 Completed Lactic Acid Stat Lab 06/27/19 15:40 Completed MAGNESIUM Stat Lab 06/27/19 15:54 Completed NT PRO BNP Stat Lab 06/27/19 15:54 Completed PROTIME WITH INR Stat Lab 06/27/19 15:54 Completed TROPONIN Q3H Lab 06/27/19 15:54 Completed TROPONIN Q3H Lab 06/27/19 18:45 Ordered TROPONIN Q3H Lab 06/27/19 21:45 Ordered TROPONIN Q3H Lab 06/28/19 00:45 Ordered TROPONIN Q3H Lab 06/28/19 03:45 Ordered Medication Summary Generic Name Dose Route Start Last Admin Trade Name Sherrie PRN Reason Stop Dose Admin Sodium Chloride 1,000 mls @ 100 mls/hr 06/27/19 15:45 06/27/19 15:46 Sodium Chloride 0.9% 1000 Ml IV 07/27/19 15:44 100 mls/hr .Q10H SENG Administration Potassium Chloride 20 meq in 100 mls @ 50 mls/hr 06/27/19 17:20 Potassium Chloride 20 Meq In Water 100ml IV 06/27/19 19:19 STAT ONE Meropenem 1 g/ Sodium Chloride 100 mls @ 200 mls/hr 06/27/19 17:22 IV 06/27/19 17:51 STAT ONE Discontinued Medications Generic Name Dose Route Start Last Admin Trade Name Sherrie PRN Reason Stop Dose Admin Furosemide 40 mg 06/27/19 17:23 Lasix 40 Mg/4 Ml IV 06/27/19 17:24 STAT ONE Lab/Rad Data: Laboratory Result Diagrams 06/27/19 15:54 06/27/19 15:54 Laboratory Results 06/27/19 06/27/19 06/27/19 Range/Units 15:54 15:54 15:54 WBC (4.0-10.5) K/mm3 RBC (4.1-5.6) M/mm3 Hgb (12.5-18.0) gm/dl Hct (42-50) % MCV (78-100) fl MCH (26-32) pg MCHC (32-36) g/dl RDW (11.5-14.0) % Plt Count (150-450) K/mm3 MPV (7.5-11.0) fl Gran % (36.0-66.0) % Eos # (Auto) (0-0.5) Absolute Lymphs (auto) (1.0-4.6) Absolute Monos (auto) (0.0-1.3) Lymphocytes % (24.0-44.0) % Monocytes % (0.0-12.0) % Eosinophils % (0.00-5.0) % Basophils % (0.0-0.4) % Absolute Granulocytes (1.4-6.9) Basophils # (0-0.4) PT 15.3 H (8.83-12.87) SECONDS INR 1.35 (0.8-3.0) D-Dimer 2138 H* (215-500) ng/mL Sodium 138 (137-145) mmol/L Potassium 3.1 L (3.5-5.1) mmol/L Chloride 101 (98-107) mmol/L Carbon Dioxide 26 (22-30) mmol/L Anion Gap 13.4 (5-15) MEQ/L BUN 14 (9-20) mg/dL Creatinine 0.99 (0.66-1.25) mg/dL Estimated GFR > 60.0 ML/MIN Glucose 141 H (74-106) mg/dL Lactic Acid (0.4-2.0) Calcium 8.8 (8.4-10.2) mg/dL Magnesium 2.0 (1.6-2.3) mg/dL Total Bilirubin 1.40 H (0.2-1.3) mg/dL AST 42 (17-59) U/L ALT 30 (0-50) U/L Alkaline Phosphatase 117 (38-126) U/L Troponin I 0.126 H* (0.000-0.034) ng/mL NT-Pro-B Natriuret Pep 7420 H (0-900) pg/mL Serum Total Protein 6.8 (6.3-8.2) g/dL Albumin 3.6 (3.5-5.0) g/dL 06/27/19 06/27/19 Range/Units 15:54 15:40 WBC 5.8 (4.0-10.5) K/mm3 RBC 4.66 (4.1-5.6) M/mm3 Hgb 14.2 (12.5-18.0) gm/dl Hct 42.8 (42-50) % MCV 91.8 (78-100) fl MCH 30.5 (26-32) pg MCHC 33.2 (32-36) g/dl RDW 14.8 H (11.5-14.0) % Plt Count 292 (150-450) K/mm3 MPV 10.1 (7.5-11.0) fl Gran % 44.9 (36.0-66.0) % Eos # (Auto) 0.20 (0-0.5) Absolute Lymphs (auto) 2.37 (1.0-4.6) Absolute Monos (auto) 0.61 (0.0-1.3) Lymphocytes % 40.7 (24.0-44.0) % Monocytes % 10.5 (0.0-12.0) % Eosinophils % 3.4 (0.00-5.0) % Basophils % 0.5 (0.0-0.4) % Absolute Granulocytes 2.62 (1.4-6.9) Basophils # 0.03 (0-0.4) PT (8.83-12.87) SECONDS INR (0.8-3.0) D-Dimer (215-500) ng/mL Sodium (137-145) mmol/L Potassium (3.5-5.1) mmol/L Chloride (98-107) mmol/L Carbon Dioxide (22-30) mmol/L Anion Gap (5-15) MEQ/L BUN (9-20) mg/dL Creatinine (0.66-1.25) mg/dL Estimated GFR ML/MIN Glucose (74-106) mg/dL Lactic Acid 2.4 H (0.4-2.0) Calcium (8.4-10.2) mg/dL Magnesium (1.6-2.3) mg/dL Total Bilirubin (0.2-1.3) mg/dL AST (17-59) U/L ALT (0-50) U/L Alkaline Phosphatase (38-126) U/L Troponin I (0.000-0.034) ng/mL NT-Pro-B Natriuret Pep (0-900) pg/mL Serum Total Protein (6.3-8.2) g/dL Albumin (3.5-5.0) g/dL - Progress Progress: unchanged Progress Note: 06/27/19 17:38 Chest x-ray shows diffuse bibasilar airspace disease with the left base having a pleural effusion and atelectasis present. Rectal decision-making: This patient presents with epigastric abdominal pain, shortness of air and decreased appetite. Patient has a monitoring/ defibrillator vest in place. He was recently discharged from [facility] after suffering to acute myocardial infarctions. Patient is being followed by Dr. Pimentel who is a water meter installer [facility]. The patient has an elevated lactic acid level as well as an elevated BNP and elevated troponin level. His d-dimer is also elevated at 2138. Patient is allergic to iodine. He has a true allergy to this. Patient was given meropenem antibiotic intravenously. I contacted Dr. Brina who is the emergency room physician at [facility]. I feel the patient would be best served at the facility where his water meter installer is working in case there is need of immediate intervention. Dr. Brian accepts the patient in transfer. Counseled pt/family regarding: lab results, diagnosis, need for follow-up, rad results - Departure Departure Disposition: Transfer Clinical Impression: Pneumonia, Congestive heart failure, Hypokalemia, D-dimer, elevated, Elevated troponin Condition: Fair Critical Care Time: Yes Critical Care Time(excluding separately billable procedures): Critical 30-74 mins Referrals: ONEL SYED [Primary Care Provider] - Instructions: Heart Failure
[2019-06-27] MEDS ORDERED: Sodium Chloride 0.9% 1000 ML 1,000 ML IV SCH (15:45)
[2019-06-27] MEDS ORDERED: Sodium Chloride 0.9% 1000 ML 1,000 ML ONE (15:46)
[2019-06-27 15:56] LABS: Absolute Neutrophil Ct (ANC) 2.62 (1.4-6.9); BASOPHIL % 0.5 % (0.0-0.4); Basophil (Absolute #) 0.03 (0-0.4); Eosinophil % 3.4 % (0.00-5.0); Hematocrit 42.8 % (42-50); Hemoglobin 14.2 gm/dl (12.5-18.0); Lymphocyte (Absolute #) 2.37 (1.0-4.6); Lymphocytes % 40.7 % (24.0-44.0); Mean Cell Volume 91.8 fl (78-100); Mean Corpuscular Hemoglobin 30.5 pg (26-32); Mean Corpuscular Hgb Concent. 33.2 g/dl (32-36); Mean Platelet Volume 10.1 fl (7.5-11.0); Monocyte (Absolute #) 0.61 (0.0-1.3); Monocytes % 10.5 % (0.0-12.0); Neutrophil % 44.9 % (36.0-66.0); Platelet Count 292 K/mm3 (150-450); Red Blood Count 4.66 M/mm3 (4.1-5.6); Red Cell Distribution Width 14.8 % (11.5-14.0); White Blood Count 5.8 K/mm3 (4.0-10.5)
[2019-06-27 16:03] LABS: INR 1.35 (0.8-3.0); PROTIME 15.3 SECONDS (8.83-12.87)
[2019-06-27 16:16] LABS: ALBUMIN 3.6 g/dL (3.5-5.0); ALKALINE PHOSPHATASE 117 U/L (38-126); ANION GAP 13.4 MEQ/L (5-15); BLOOD UREA NITROGEN 14 mg/dL (9-20); CHLORIDE 101 mmol/L (98-107); Calcium 8.8 mg/dL (8.4-10.2); Carbon Dioxide 26 mmol/L (22-30); Creatinine 1 0.99 mg/dL (0.66-1.25); Glucose 141 mg/dL (74-106); NT PRO BNP 7420 pg/mL (0-900); Potassium 3.1 mmol/L (3.5-5.1); SGOT/AST 42 U/L (17-59); SGPT/ALT 30 U/L (0-50); SODIUM 138 mmol/L (137-145); Total Protein 6.8 g/dL (6.3-8.2)
--- NOTE | 2019-06-27 16:28 | XRAY ---
Indication: Short of breath. Comparison: One day earlier. Portable chest obtained again with overlying cardiac monitoring device. Chest unchanged again demonstrating diffuse left lung and right base airspace disease with left base effusion/atelectasis. Heart is not enlarged. No new cardiopulmonary abnormalities.
[2019-06-27] MEDS ORDERED: POTASSIUM CHLORIDE 20 mEq IN WATER 100ML 20 MEQ/100 ML BAG IV ONE (17:20)
[2019-06-27] MEDS ORDERED: Merrem 1 GM 1 G in Sodium Chloride 100ML MINI-BAG PLUS 100 ML IV ONE (17:22)
[2019-06-27] MEDS ORDERED: Lasix 40 MG/4 ML IV ONE (17:23)
[2019-06-27] MEDS ORDERED: Lasix 40 MG/4 ML ONE (17:55)
[2019-06-27] MEDS ORDERED: Merrem 1 GM IV ONE (17:55)
[2019-06-27] MEDS ORDERED: Sodium Chloride 100ML MINI-BAG PLUS 100 ML IV ONE (17:56)
[2019-06-27] MEDS ORDERED: POTASSIUM CHLORIDE 20 mEq IN WATER 100ML 100 ML IV ONE (17:57)
[2019-06-27] MEDS ORDERED: MORPHINE SULFATE 4 MG INJ IV ONE (19:05)
[2019-06-27] MEDS ORDERED: Zofran 4 MG/2 ML VIAL IV ONE (19:06)
[2019-06-27] MEDS ORDERED: Zofran 4 MG/2 ML VIAL ONE (19:12)
[2019-06-27] MEDS ORDERED: MORPHINE SULFATE 4 MG INJ ONE (19:12)
[2019-06-27 20:10] VITALS: BP 94/66; PULSE 114; O2SAT 94
== END 2019-06-27 21:10 | disposition short-term general hospital (02) ==
LOC: ED 14:48
DX: J18.9 Pneumonia, unspecified organism (principal); I50.9 Heart failure, unspecified; E87.6 Hypokalemia; R79.89 Other specified abnormal findings of blood chemistry; R74.8 Abnormal levels of other serum enzymes; J90 Pleural effusion, not elsewhere classified; J98.11 Atelectasis; I25.2 Old myocardial infarction; E78.00 Pure hypercholesterolemia, unspecified; G47.30 Sleep apnea, unspecified; K21.9 Gastro-esophageal reflux disease without esophagitis; F41.9 Anxiety disorder, unspecified; F32.9 Major depressive disorder, single episode, unspecified; Z72.0 Tobacco use; Z79.899 Other long term (current) drug therapy
CPT/HCPCS: 36000; 36415; 71045; 80053; 83605; 83735; 83880; 84484; 85025; 85379; 85610; 93005; 93041; 94760; 96360; 96365; 96368; 96374; 96375; 96376; 99285; 99291; J1940; J2270; J2405; J3480